=== PATIENT | male | born 1930 | race Caucasian/White ===

== ENCOUNTER 2017-05-21 08:42 | Emergency (ER) | payer MEDICARE, OTHER ==
[~2017-05-21] VITALS: Ht 167.6 cm; Wt 97.1 kg
[~2017-05-21 08:42] MED LIST: ALEVE220 MG PO; AMLODIPINE BESYL5 MG PO; ASPIRIN EC325 MG PO; CARVEDILOL3.125 MG PO; CRESTOR40 MG PO; FINASTERIDE5 MG PO; FUROSEMIDE20 MG PO; LEVOTHYROXINE75 MCG PO; LOSARTAN POTAS100 MG PO; METFORMIN HCL500 MG PO; NITROSTAT0.4 MG SL; SUPER TWIN EP1250 MG PO; TRAZODONE HCL50 MG PO; TYLENOL COLD M240 M1 PO
[2017-05-21] MEDS ORDERED: SERTRALINE HCL100 MG (09:29)
[2017-05-21] MEDS ORDERED: CRESTOR40 MG (09:34)
[2017-05-21] MEDS ORDERED: FERROUS SULFAT325 MG (09:35)
[2017-05-21] MEDS ORDERED: LATANOPROST2.5 ML (09:36)
--- NOTE | 2017-05-21 23:02 | EKG ---
[facility] [address] [facility] [place], [place] [address] Signed Sinus bradycardia with 2nd degree AV block (Mobitz I) Right bundle branch block Inferior infarct , age undetermined Abnormal ECG No previous ECGs available Confirmed by JUNIOR VINES MD ([id number]) on 05/21/2017 11:02:09 PM Electronically Signed By: JUNIOR VINES MD 05/21/17 230 PATIENT NAME: SANGEETA BOSS Electrocardiogram DATE OF : 34 PHYSICIAN: JUNIOR VINES MD REPORT #: [id number] REPORT IS CONFIDENTIAL AND NOT TO BE RELEASED WITHOUT AUTHORIZATION
== END 2017-05-21 14:34 | disposition short-term general hospital (02) ==
LOC: ED 08:42
DX: I44.1 Atrioventricular block, second degree (principal); Z87.891 Personal history of nicotine dependence; Z79.899 Other long term (current) drug therapy; Z79.84 Long term (current) use of oral hypoglycemic drugs; Z95.1 Presence of aortocoronary bypass graft; I45.10 Unspecified right bundle-branch block
CPT/HCPCS: 71045; 80053; 84484; 85025; 85610; 93005; 93010; 99285

== ENCOUNTER 2019-09-30 14:46 | Emergency (ER) | payer MEDICARE, OTHER ==
[~2019-09-30] VITALS: Ht 167.6 cm; Wt 97.1 kg
--- NOTE | ~2019-09-30 | EKG ---
[facility] [address] [facility] [place], [place] [address] Draft EK completed, results pending confirmation PATIENT NAME: CELSO BOSSRui HEBERT Electrocardiogram DATE OF : 34 PHYSICIAN: PRELIMINARY REPORT #: [id number] REPORT IS CONFIDENTIAL AND NOT TO BE RELEASED WITHOUT AUTHORIZATION
[~2019-09-30 14:46] MED LIST changes: +CRESTOR40 MG; +EXTRA STRENGTH500 MG PO; +FERROUS SULFAT325 MG; +LATANOPROST2.5 ML; +SERTRALINE HCL100 MG
[2019-10-02] MEDS ORDERED: CRESTOR40 MG NG (14:46)
[2019-10-02] MEDS ORDERED: CARVEDILOL25 MG PO (14:47)
[2019-10-02] MEDS ORDERED: XALATAN2.5 ML OPTH (14:50)
[2019-10-02] MEDS ORDERED: BRIMONIDINE TART5 ML OPTH (14:51)
== END 2019-09-30 18:43 | disposition home or self-care (01) ==
LOC: ED 14:46
DX: F32.9 Major depressive disorder, single episode, unspecified (principal); N18.9 Chronic kidney disease, unspecified; D64.9 Anemia, unspecified; F41.9 Anxiety disorder, unspecified; Z87.891 Personal history of nicotine dependence; Z79.899 Other long term (current) drug therapy; Z79.82 Long term (current) use of aspirin; Z79.84 Long term (current) use of oral hypoglycemic drugs
CPT/HCPCS: 71045; 80053; 83735; 83880; 84484; 85025; 93005; 93010; 96374; 99285-25; J2405

== ENCOUNTER 2019-10-02 11:39 | Inpatient (IN) | payer MEDICARE, OTHER ==
[~2019-10-02] VITALS: Ht 167.6 cm; Wt 100.2 kg
[~2019-10-02 11:39] MED LIST changes: -EXTRA STRENGTH500 MG PO; +TYLENOL325 M1 PO
--- OUTSIDE RECORDS SUMMARY | 2019-10-02 11:42 | XMS ---
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 Rosa Maria has no Care Guidelines for this patient. Yoav VISIT COUNT (12 MO.) 2 [facility] TOTAL 2 NOTE: Visits indicate total known visits. ED/UCC VISIT TRACKING (12 MO.) 10/02/2019 11:40 [facility] [place] TYPE: Emergency COMPLAINT: - BLACK STOOL 09/30/2019 14:[address] [facility] [place] TYPE: Emergency COMPLAINT: - NAUSEA, HEADACHE DIAGNOSES: - long-term (current) use of aspirin - Major depressive disorder, single episode, unspecified - Shortness of breath - Personal history of nicotine dependence - Anxiety disorder, unspecified - long-term (current) use of oral hypoglycemic drugs - Anemia, unspecified - Other buttermaker continuous churn (current) drug therapy - Chronic kidney disease, unspecified INPATIENT VISIT TRACKING (12 MO.) No inpatient visits to display in this time frame [email or web address]
[2019-10-02] MEDS ORDERED: LEXAPRO20 MG PO (13:25)
[2019-10-02] MEDS ORDERED: CRESTOR40 MG PO (14:46)
[2019-10-02] MEDS ORDERED: COREG12.5 MG PO (14:47)
[2019-10-02] MEDS ORDERED: LEXAPRO10 MG PO (14:48)
[2019-10-02] MEDS ORDERED: LEVO-T88 MCG PO (14:50)
[2019-10-02] MEDS ORDERED: XALATAN2.5 ML OU (14:50)
[2019-10-02] MEDS ORDERED: BRIMONIDINE TART5 ML OU (14:51)
--- NOTE | 2019-10-02 15:30 | NUR ---
PATIENT ARRIVED TO THE CCU ROOM 127 VIA STRETCHER AND TRANSFERED TO THE BED BY STANDING. PATIENT TOELRATED WELL. PATIENT IS A LITTLE WOBBLY WITH MOBILIZATION. PATIENT DENIES ANY NEEDS AT THIS TIME. WILL CONTINUE TO CLOSELY MONITOR.
--- NOTE | 2019-10-02 16:00 | NUR ---
CALLED MD SMITH TO UPDATE THAT PATIENTS TEMP ON ARIVAL IS 101.5. SEE NEW ORDERS. PATIENT STATES "I FEEL COLD". WILL GIVE TYLENOL ONCE BLOOD CULTURES ARE DRAWN.
--- NOTE | 2019-10-02 16:30 | NUR ---
PRN TYLENOL GIVEN FOR TEMP OF 101.5. WILL CLOSELY MONITOR FOR EFFECTIVENESS. PATIENT DENIES ANY OTHER NEEDS AT THIS TIME. UPDATED THAT HE WILL NEED TO GO FOR A CT SCAN. WILL CONTINEU TO RAJINDER MANNING.
--- NOTE | 2019-10-02 17:00 | NUR ---
[facility] L[facility]. PATIENT TOELRATED WELL. ASSISTED BACK TO BED. EDUCATED PATIENT TO CALL STAFF IF HE NEEDS TO GET UP. NO OTHER NEEDS AT THIS TIME. WILL CONTINUE TO CLOSELY MONTIOR.
--- NOTE | 2019-10-02 18:05 | NUR ---
THIS RN WENT WITH PATIENT TO CT. PATIENT TOELRATED WELL. PATIENT ABLE TO TRANSFER HIMSELF FROM BED TO CT TABLE. PATIENT BACK IN ROOM AT THIS TIME. DINNER ORDERED. PATIENT REQUESTED STAFF CALL HIS AND GIVE HER AN UPDATE. CALLED THE NUMBER PROVIDED SEVERAL TIMES, BUT HAS A BUSY SIGNAL WHEN CALLING. WILL TRY AGAING LATER. PATIENT IS DOING WELL AT THIS TIME. WILL CONTINUE TO CLOSELY MONTIOR.
--- NOTE | 2019-10-02 19:58 | NUR ---
IN ROOM TO ASSESS PT, SATURATIONS AT 9O PERCENT ON 2 L WHILE PT SLEEP. O2 INCREASED TO 3 L AT THIS TIME. PT DENIES PAIN OR SHORTNESS OF BREATH. PT HAS FINE CRACKLES IN THE BASES OF BOTH LUNGS OTHERWISE LUNGS SOUND CLEAR. PT DENIES PAIN. IV FLUIDS INFUSING. PT ALERT AND ORIENTED. PLAN OF CARE FOR EVENING DISCUSSED. CALL LIGHT WITHIN REACH. NO FURTHER NEEDS AT THIS TIME
--- NOTE | 2019-10-02 21:00 | NUR ---
LABS DRAWN AND MEDICATION ADMINISTRATION COMPLETE. PT ASSISTED WITH REPOSITIONING. PT REMAINS ON 3 L NC. CALL LIGHT WITHIN REACH. NO FURTHER NEEDS AT THIS TIME.
--- NOTE | 2019-10-02 21:01 | NUR ---
labs collected via XIMENA Lopez. sent via tube system.
--- NOTE | 2019-10-02 21:20 | NUR ---
PT SON UPDATED ON PLAN OF CARE AND PATIENT STATUS AT THIS TIME
--- NOTE | 2019-10-02 23:50 | NUR ---
IN ROOM FOR ASSESSMENT. PT DENIES ANY COMPLAINTS OF PAIN, SHORTNESS OF BREATH OR DISCOMFORT. PT REMAINS ON 3 L NC WITH 02 SATURATIONS IN THE MID 90'S. RR=20. LUNGS DIMINISHED WITH FINE CRACKLES IN BASES, WORSE IN LEFT BASE. ASSISTED PT WITH REPOSITIONING. CALL LIGHT WITHIN REACH. NO FURTHER NEEDS AT THIS TIME.
--- NOTE | 2019-10-03 00:55 | NUR ---
PT DESATURATING INTO THE MID 80S WHILE SLEEPING ON 3 L NC. RT CALLED TO PLACE PT ON CPAP. RT IN ROOM AT THIS TIME.
--- NOTE | 2019-10-03 01:12 | NUR ---
IN ROOM WITH RT TO ASSIST WITH PLACING CPAP. PT SHAKING, STATES HE IS COLD. TEMPERATURE WAS 99.6. GIVEN PRN MEDICATION FOR FEVER (SEE EMAR). PT REPOSITIONED IN BED. VOIDED INTO URINAL. PT PLACED ON CPAP, O2 SATS AT 100 PERCENT AT THIS TIME WITH CPAP IN PLACE.
--- NOTE | 2019-10-03 02:26 | NUR ---
PT OXYGEN SATURATIONS DROPPED INTO THE MID 80'S WHILE ON 3 L ON CPAP. IN ROOM TO ASSESS PT. ADJUSTED MASK, INCREASED O2 TO 4 L CPAP. PT ALERT AND ORIENTED, ANSWERING QUESTIONS APPROPRIATELY, DENIES SHORTNESS OF BREATH OR RESPIRATORY DISCOMFORT. SATURATIONS NOW AT 96 PERCENT. WILL CONTINUE TO MONITOR.
--- NOTE | 2019-10-03 04:00 | NUR ---
CPAP ALARMING, RT IN ROOM AT THIS TIME TO ADJUST MAX. O2 SATS REMAIN 90-93 PERCENT ON 3 L CPAP. NO FURTHER NEEDS AT THIS TIME.
--- NOTE | 2019-10-03 05:30 | NUR ---
IN ROOM TO DRAW LABS. PT REMAINS ON 3L CPAP.
--- NOTE | 2019-10-03 06:00 | NUR ---
PT UP TO BSC TO HAVE BM. PT HAD MEDIUM LIQUID STOOL. SAMPLE COLLECTED. PT REQUIRED ONE PERSON ASSIST WITH AMUBLATION. PT STATES, "I FEEL LIKE I MAY BE SICKER THAN I THOUGHT" ROSAS CARE PERFORMED. PT BACK IN BED ON 3 L NC. NO FURTHER NEEDS AT THIS TIME
--- NOTE | 2019-10-03 07:30 | NUR ---
PATIENT SHIFT REPORT RECIEVED FROM SEWING MACHINE MECHANIC RN. PATIENT RESTING IN BED AT THIS TIME. CALL LIGHT IN REACH. PATIENT CALLS APPROPRIATELY. PER REPORT PATIENT CURRENTLY ON 2L NC. WILL CONTINUE TO CLOSELY MONITOR.
--- NOTE | 2019-10-03 08:30 | NUR ---
PATIENT COMPLAINGING OF 5/10 LEFT SIDED CHEST PAIN. STATES "FEELS LIKE PRESSURE ON MY CHEST". PATIENT DENIES COUGHING. MD SMITH NOTIFIED. NEW ORDERS FOR EKG AND TROPONIN. PATIENT DENIES ANY OTHER NEEDS AT THIS TIME. WILL CONTINUE TO CLOSELY MONITOR.
--- NOTE | 2019-10-03 09:38 | NUR ---
PATIENT RESTING IN BED. PATIENT TROPONIN BACK AT 0.022 WHICH IS IMPROVED FROM YESTERDAY. PATIENT WAS ABLE TO MOVE HIMSELF UP IN BED ON HIS OWN AND TOLERATED WELL. PATIENT ORDERED BREAKFAST. NO OTHER NEEDS AT THSI TIME. WILL CONTINUE TO CLOSELY MONITOR.
[2019-10-03] MEDS ORDERED: VENTOLIN HFA18 GM INH (09:57)
[2019-10-03] MEDS ORDERED: VITAMIN D3125 MC1 PO (09:58)
[2019-10-03] MEDS ORDERED: COZAAR100 MG PO (10:01)
[2019-10-03] MEDS ORDERED: ZOLOFT100 MG PO (10:30)
[2019-10-03] MEDS ORDERED: MOTION SICKNESS25 M4 PO (10:32)
[2019-10-03] MEDS ORDERED: NITROSTAT0.4 MG SL (10:33)
--- NOTE | 2019-10-03 11:30 | NUR ---
PATIENT IS UP IN THE CHAIR AT THIS TIME AND BREAKFAST FINISHED. PATIENT USED THE URINAL WITH MINIMAL ASSIST. PATIENT REMAINS ON 2L NC. MD SMITH DID A ROOM AIR TRIAL WITH SPO2 89%. PATIENTS VITALS REMAIN STABLE. PATIENT DENIES ANY OTHER NEEDS AT THIS TIME. WILL CONTINUE TO CLOSELY MONITOR.
--- NOTE | 2019-10-03 13:07 | NUR ---
CRITICAL LAB OF POSITIVE COVID GIVEN TO DR SMITH AND PTS NURSE.
--- NOTE | 2019-10-03 13:30 | NUR ---
PATIENT UP IN THE CHAIR AT THIS TIME AND DOING WELL. PATIENT RESTING WELL AND DENEIS ANY NEEDS AT THIS TIME. WILL CONTINUE TO CLOSELY MONITOR.
--- NOTE | 2019-10-03 13:43 | NUR ---
DUE TO COVID STATUS, INFECTIONS DISEASE NURSE CONTACTED. SHE REQUESTS STAFF WHO HAVE TAKEN CARE OF PT BE NOTIFIED WELL [facility] SINCE PT HAD BEEN THERE 3 DAYS BEFORE. ALSO SHE REQUESTS MANAGERS BE CALLED. [facility] ALSO CALLED THIS RN, TO REQUEST CHART NOTES ON PT.
--- NOTE | 2019-10-03 13:52 | NUR ---
Medications reconciled using chart notes from recent [facility] visit
--- NOTE | 2019-10-03 14:00 | NUR ---
PATIENT RESTING IN BED. PATIENTS COVID TEST CAME BACK POSITIVE. MD SMITH NOTIFIED PATIENT AND SPOKE WITH HIM REGUARDING ALL QUESTIONS. MD SMITH CONTACTED HIS FAMILY WELL. NO FURTHER QUESTIONS AT THIS TIME. WILL CONTINUE TO CLOSELY MONITOR.
--- NOTE | 2019-10-03 14:02 | NUR ---
NURSING ADA ACCOMMODATION CONSULTANT AT [facility] [place] NOTIFIED OF POSITIVE COVID RESULT.
--- NOTE | 2019-10-03 15:31 | EKG ---
[facility] [address] [facility] [place], [place] [address] Signed AV dual-paced rhythm Abnormal ECG When compared with ECG of 30-SEP-2019 14:58, (Unconfirmed) No significant change was found Confirmed by DHIRAJ SMITH DO ([id number]) on 10/03/2019 3:31:46 PM Electronically Signed By: DHIRAJ SMITH DO 10/03/19 1531 PATIENT NAME: SANGEETA BOSS ANUP Electrocardiogram DATE OF : 34 PHYSICIAN: DHIRAJ SMITH DO REPORT #: [id number] REPORT IS CONFIDENTIAL AND NOT TO BE RELEASED WITHOUT AUTHORIZATION
--- NOTE | 2019-10-03 15:32 | EKG ---
[facility] [address] [facility] [place], [place] [address] Signed AV dual-paced rhythm with prolonged AV conduction Abnormal ECG When compared with ECG of 02-OCT-2019 12:09, (Unconfirmed) No significant change was found Confirmed by DHIRAJ SMITH DO ([id number]) on 10/03/2019 3:32:01 PM Electronically Signed By: DHIRAJ SMITH DO 10/03/19 1532 PATIENT NAME: SANGEETA BOSS ANUP Electrocardiogram DATE OF : 34 PHYSICIAN: DHIRAJ SMITH DO REPORT #: [id number] REPORT IS CONFIDENTIAL AND NOT TO BE RELEASED WITHOUT AUTHORIZATION
--- NOTE | 2019-10-03 15:55 | NUR ---
PATIENT UP TO THE BEDSIDE TO VOID. PATIENT IS STABLE ON HIS FEET WITH STANDING AND REQUIRES STAND-BY ASSIST. PATIENT VISITED WITH MARY GAGE FROM [facility]. PATIENT STATED HE HAD A GOOD VISIT WITH HER AND IT HELPED. PATIENT IS FEELING PRETTY DOWN ABOUT HIS DIAGNOSIS OF COVID19. REVIEWED PATIENTS STATUS AND HOW HE IS DOING AT THIS TIME AND TRIED TO ENCOURAGE PATIENT IN HIS PROGRESS SO FAR. PATIENT IS STABLE AND DOING WELL AT THIS TIME. WILL CONTINUE TO CLOSELY MONITOR.
--- NOTE | 2019-10-03 18:14 | NUR ---
THIS RN IN TO SEE PATIENT. ASSISTED PATIENT TO THE EDGE OF THE BED. PATIENT SHAKY AND STATES HE IS COLD. TEMPERATURE CHECKED AND NORMAL AT 98.6. GAVE PRN TYLENOL FOR GENERALIZED PAIN. PATIENT ALSO NAUSEATED AND VOMITED ABOUT 50MLS OF CLEAR FLUID. PATIENT HAS UN UPPER AIRWAY EXERTION WHEEZE NOTED. PATIENT SPO2 DECREASED WITH CHILLING. INCREASED OXYGEN UP TO 4L NC. ASSISTED PATIENT ONTO HIS SIDE. PATIENT UNABLE TO TOLERATE PRONING AT THIS TIME. PER MD SMITH ENCOURAGE PRONING IF PATIENT CAN TOELRATE. ONCE PATIENT IS NO LONGER CHILLING AND FEELING A LITTLE BETTER, WILL TRY PRONING. RT IN TO ASSESS PATIENT. NO OTHER NEEDS AT THIS TIME. WILL CONTINUE TO CLOSELY MONITOR.
--- NOTE | 2019-10-03 19:30 | NUR ---
PT REPORT RECEIVED, CARE ASSUMED AT THIS TIME. RESPONDED TO PT CALL LIGHT TO ASSIST WITH URINAL. PT STEADY ON FEET WITH ONE PERSON ASSIST. ASSESSMENT COMPLETED. PLAN OF CARE ESTABLISHED FOR SHIFT. PT COMPLIANS OF FEELING HOT, TEMP OF 99.1. DISCUSSED RESPIRATORY CARE PLAN FOR NIGHT. PT TO SLEEP ON SIDE MUCH POSSIBLE. CALL LIGHT WITHIN REACH. NO FURTHER NEEDS AT THIS TIME.
--- NOTE | 2019-10-03 20:30 | NUR ---
IN ROOM FOR MEDICATION ADMINISTRATION. ASSISTED PT WITH TURNING ON TO RIGHT SIDE. OXYGEN INCREASED TO 5 L NC, FOR SATURATIONS DOWN INTO THE MID 80'S ON FOUR LITERS NASAL CANNULA. AFTER REPOSITIONING AND INCREASED O2 DELIVERY, PT OXYGEN SATURATIONS INCREASED TO 90 PERCENT.
--- NOTE | 2019-10-03 21:41 | NUR ---
I was called by the Television Inspector to talk with PT who was feeling anxiety over his diagnosis and concern over his at 1443. I called the CCU nurse in charge of PT's care, Beverly, and she shared more with me about PT's situation and that he was baptism and believed in the Lord. She felt it better for me to talk with him over the phone then to stand outside his room.I was transferred to his room and we had good report as we talked about his diagnosis and his concern for his , mostly leaving her if he passed. The nurse asked me to let him know that they contacted his and son about his diagnosis. He welcomed me sharing scripture with him and I read Sadi 4:4-7. From those verses we talked about his concerns and he welcomed me to pray for those concerns. He is also not wanting to suffer too much. I reminded him that God was with him and that He was good and not surprised by the PT's circumstances. I let him know that he could have the nurses contact me if he would like to talk again.
--- NOTE | 2019-10-03 21:45 | NUR ---
RT CALLED TO PUT PT ON CPAP. PT SATURATIONS DIPPED DOWN TO 80 PERENT WHILE SLEEPING. PT PLACED ON CPAP WITH 5 L O2 BLEED IN. SATURATIONS NOW AT 97 PERECENT. RESPIRATIONS EVEN AND LABORED. WILL CONTINUE TO MONITOR RESPIRATORY STATUS AND OXYGENATION.
--- NOTE | 2019-10-03 22:43 | NUR ---
PT RESTING WITH EYES CLOSED, BREATHING EVEN AND UNLABORED. SPO2 95 PERCENT ON 5 L CPAP. CALL LIGHT AND PERSONS BELONGINGS WITHIN REACH. NO FURTHER NEEDS AT THIS TIME.
--- NOTE | 2019-10-03 23:43 | NUR ---
IN ROOM TO ASSESS PATIENT. PT URINATED, REPOSITIONED IN BED ONTO LEFT SIDE. NO FEVERS, REMAINS ON CPAP. FINE CRACKLES NOTED IN BASES. CALL LIGHT WITHIN REACH. DENIES FURTHER NEEDS AT THIS TIME.
--- NOTE | 2019-10-04 00:07 | NUR ---
RT IN ROOM AT THIS TIME TO ADJUST CPAP ON PT.
--- NOTE | 2019-10-04 01:06 | NUR ---
PT CPAP WAS ALARMING. ASSISTED PT IN REPOSITIONING ONTO RIGHT SIDE AND REPOSITIONED MASK. SPO2 AT 94 PERCENT ON 5 L CPAP. NO FURTHER NEEDS AT THIS TIME
--- NOTE | 2019-10-04 02:30 | NUR ---
PT RESTING ON BIPAP, SPO2 = 96. RR=21. BREATHING EVEN AND NONLABORED. WILL CONTINUE TO MONITOR.
--- NOTE | 2019-10-04 03:46 | NUR ---
IN ROOM FOR ASSESSMENT. ASSISTED PT TO STANDING POSITION TO VOID. PT PLACED ON NC WHILE ASSESSMENT COMPLETED. FOUND TO HAVE COARSE CRACKLES IN BILATERAL LOWER LUNGS. ENCOURAGED TO COUGH AND DEEP BREATH. REPOSITIONED PT IN BED ON LEFT SIDE, PLACED BACK ON CPAP. CALL LIGHT WITHIN REACH. NO FURTHER NEEDS AT THIS TIME
--- NOTE | 2019-10-04 04:10 | NUR ---
DR SMITH UPDATED ABOUT PT'S LOW GRADE TEMP, COARSE CRACKLES IN THE BASIS, AND INCREASING BLOOD PRESSURES. ORDERS RECIEVED. PT IV FLUIDS DC'D AT THIS TIME.
--- NOTE | 2019-10-04 05:21 | NUR ---
IN ROOM WITH THE PT, REQUESTING BSC FOR BM. AFTER SITTING UP TO BED, PT HAD EPISODE OF SHORTNESS OF BREATH, SATURATIONS DROPPED DOWN INTO THE LOW 80'S. PLACED ON OXIMASK 10L. SATURATIONS BACK INTO THE 90'S, BUT RR IN THE 30S. PT LUNGS SOUND COARSE WITH CRACKLES. PT HAS RIGORS. TEMP OF 99.4 AT THIS TIME. PT BACK IN BED. REMAINS ON 8 L OM.
--- NOTE | 2019-10-04 06:56 | NUR ---
pt had large liquid incontient stool in bed. KATHRYN Ramos performed completed bed change and skin care.
--- NOTE | 2019-10-04 07:00 | NUR ---
Report received, orders acknowledged.
--- NOTE | 2019-10-04 07:16 | NUR ---
pt used call light to ask for assistance to BSC, he had an accident and a complete bed change was done. new gown provided for pt. pt was cleaned and is comfortably resting in bed. nothing further needed at this time.
--- NOTE | 2019-10-04 08:15 | NUR ---
Patient up to BSC with 1PA, voided 350 mls. HR in the 60's, RR increases to the 30's with ambulation, SpO2 of 94% on 6L oxymask. Returns to bed with 1PA. Vitals taken, assessment complete. BP of 173/64. AM medications given (see MAR). BG of 144, 1 unit of insulin given. Water refreshed, breakfast delivered. Crackles auscultated in lower bases of lungs, clear in uppers. 0900 - Patient reports nausea, prn antiemetic given (see MAR).
--- NOTE | 2019-10-04 09:33 | NUR ---
Dr. Alexander in room to assess patient and discuss POC
--- NOTE | 2019-10-04 11:00 | NUR ---
Patient laying in bed with eyes closed, rouses easily to voice. HR in the 60's, SpO2 of 96% on 6L oxymask, RR of 18. Denies pain or nausea. IV 200 mg remdesivir hung at 500mls/hr. Patient educated to alert nursing staff to s/s of infusion reaction. Patient educated on importance of using incentive spirometer. Call light within reach.
--- NOTE | 2019-10-04 11:37 | NUR ---
Spoke with patient's son on telephone, updated on patient condition
--- NOTE | 2019-10-04 11:54 | NUR ---
Patient laying in bed on right side, talking on phone with family. BG of 130, no insulin given. IV furosemide given. Vitals taken, assessment complete.
--- NOTE | 2019-10-04 12:15 | NUR ---
Patient sitting up at edge of bed with feet on floor. Lunch delivered. Patient ate 100% of meal, denies nausea. Patient up to commode with 1PA, voided 350 mls with diffuse, loose small amount of diarrhea. New linens on bed, new gown provided. Cold cloth applied to patient's back. 1245 - Returns to bed in prone position, SpO2 immediately rises to 97-99% on 6LNC. Patient agreeable to laying in prone position for 30 minutes to 2 hours. Will check on patient at 1315 to reassess.
--- NOTE | 2019-10-04 12:53 | NUR ---
PT UNDER PRECAUTIONS, GAVE XIMENA PITTS TO GIVE PT THAT I AM AVAILABLE FOR PHONE CALL CONFERENCE IF NEEDED.
--- NOTE | 2019-10-04 13:59 | NUR ---
Patient laying in prone position, in reverse trendelenburg. Patient sleeping, RR of 22, SpO2 of 99% on 6LNC, HR in the 60's. Call light within reach.
--- NOTE | 2019-10-04 14:48 | NUR ---
Patient laying in prone position, in reverse trendelenburg. Patient sleeping, RR of 20, SpO2 of 96-100%, HR in the 60's. Call light within reach.
--- NOTE | 2019-10-04 14:57 | NUR ---
Patient now laying on left side. RR of 18, SpO2 of 92-95% on 5LNC, HR in the 60-70's. Call light within reach.
--- NOTE | 2019-10-04 15:30 | NUR ---
Patient standing at bedside with 1PA to void in urinal, 450 mls. Reports "I feel less wobbly than I did earlier." Patient repositioned in bed back to prone, in reverse trendelenburg. SpO2 of 97% on 5LNC, HR in the 60's, RR of 16. Temp taken, patient afebrile. 1000mg acetaminophen given. Water refreshed, patient covered with blanket in prone. Denies further needs, call light within reach.
--- NOTE | 2019-10-04 16:30 | NUR ---
Spoke with pt by phone as he is Covid +. Pt states he lives in [place] in a 1 story home without steps. LIves with his . 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 States he has been going through a depression and has done so in the past. Would like to go to counseling andnames given, pt would like to use [facility]. I will schedule an appt. Pt plans on going home to his [facility] on [address]. He feels his has already had covid and the [facility] is assessing and following her health.
--- NOTE | 2019-10-04 18:00 | NUR ---
IN PATIENTS ROOM TO HELP HIM UP TO BSC. PT STATES HE'S FEELING OKAY OVERALL, BUT NOT GREAT.
--- NOTE | 2019-10-04 18:45 | NUR ---
Patient sitting up in chair. HR in the 60's, SpO2 of 95%, with a RR of 22. New CPOX placed on patient finger. Patient reports feeling "cold," warm blankets provided. Denies further needs, call light within reach.
--- NOTE | 2019-10-04 19:10 | NUR ---
Patient up to BSC, unable to void or produce BM. Patient shaking with rigors, warm blankets provided. Returns to chair with 1PA, continues to shake. Patient reports "I'm a little anxious, and a little cold." More warm blankets applied. Temp of 99.0. Call light within reach.
--- NOTE | 2019-10-04 19:30 | NUR ---
REPORT RECIEVED FROM CCU RN, CARE OF PATIENT ASSUMED AT THIS TIME. PT UP IN CHAIR ON 5 L NC, CALL LIGHT WITHIN REACH. NO NEEDS AT THIS TIME.
--- NOTE | 2019-10-04 20:15 | NUR ---
IN ROOM FOR ASSESSMENT. PT HAS RIGORS, TEMPERATURE AT 99.0F. TYLENOL AND OTHER PM MEDICATIONS GIVEN AT THIS TIME. PT HAS COARSE CRACKLES IN BILATERAL LUNGS, UPPER AIRWAYS CLEAR. DISCUSSED PRONING AND PLAN OF CARE FOR NIGHT. PT REQUESTS TO SLEEP ON SIDE FOR UNTIL LOW GRADE FEVER BREAKS. ASSISTED PT TO BSC, AND THEN INTO BED. LAYING ON LEFT SIDE. SPO2 AT 95 PERCENT ON 6 L NC, RR =24. SIDE RAILS UP, CALL LIGHT WITHIN REACH. NO FURTHER NEEDS AT THIS TIME.
--- NOTE | 2019-10-04 21:17 | NUR ---
IN ROOM TO ASSIST PT TO BSC. PT LESS SHAKY AND COLD. STATES HE IS FEELING BETTER. TEMPERATURE 99.8 AT THIS TIME. PT BACK TO BED. IN PRONE POSITION AT THIS TIME. SATURATIONS 95 PERCENT ON 6 L NC.
--- NOTE | 2019-10-04 21:48 | NUR ---
pt back up to bsc to have bowel movement. mainting saturations in the low 90s with ambulation on 6 l nc. bsck in bed. laying on left side. call light within reach.
--- NOTE | 2019-10-04 23:12 | NUR ---
PT RESTING WITH EYES CLOSED, BREATHING EVEN AND UNLABORED. RR=24, SPO2 91 PERCENT ON 6 L NC. CALL LIGHT WITHIN REACH. NO FURTHER NEEDS AT THIS TIME.
--- NOTE | 2019-10-05 00:48 | NUR ---
IN ROOM FOR ASSESSMENT. PT UP TO BEDSIDE TO VOID. LUNGS CONTINUE TO HAVE COARSE CRACKLES, WORSE IN THE LEFT LOWER LOBE. PT TEMPERATURE IS 100.0 BUT PATIENT IS NOT SHAKING OR CHILLING. ASSISTED PT WITH TURNING TO RIGHT SIDE LYING POSITION. OXYGEN SATURATIONS IN THE MID 90S ON 6 L NC. NO REPORTED NEEDS AT THIS TIME.
--- NOTE | 2019-10-05 03:58 | NUR ---
I heard an alarm so i checked on pt. He was out of bed, I asked him to get back into bed and i will come in and assist him. turns out pt used the trash can as a BSC and had a med sized BM. pt was cleaned and a complete bed changed occured. pt requested water and warm blankets, nothing further was needed from pt. this contract post office clerk told pt how important it is for him to use the call light for assistance. pt agreed this was the best practice and will use the call light. bed alarm is set incase he "doesnt want to be a bother".
--- NOTE | 2019-10-05 05:28 | NUR ---
in room for assessment. pt has chills. temp of 101.1 F. lungs sound diminished. crackles remain present in both bases, though they have improved since the last assessment. saturations at 92 percent on 6 l nc. pt up to bsc. had liquid bowel movement. work of breathing increased with fever. tylenol given early. back in bed at this time. will continue to closely monitor respiratory rate, oxygenation, and temperature.
--- NOTE | 2019-10-05 06:05 | NUR ---
pt used call light to ask for a cool rag because his temperture was fairly high. temperture was rechecked and had gone down some. 100.4. pt said he did not need anything further at this time.
--- NOTE | 2019-10-05 06:49 | NUR ---
pt used call light to ask to use restroom. stated he was not feeling well at all. he is feeling naueous, hes painful, hes "sort of confused". he knows where he currently is. XIMENA Lopez notified.
--- NOTE | 2019-10-05 06:55 | NUR ---
PT HEART RATE INCREASED UP BETWEEN THE 80-110 WITH A WIDEN QRS. BEATS ARE NOT PASSED. PT REPORTS FEELING MILDLY NAUSEATED AND GENERALIZED PAIN. DR SMITH CALLED AND ORDERS RECIEVED. KATHRYN CHRIS IN ROOM AT THIS TIME TO DO AN EKG.
--- NOTE | 2019-10-05 07:15 | NUR ---
Report received, orders acknowledged.
--- NOTE | 2019-10-05 08:00 | NUR ---
Patient sleeping in bed, rouses easily to voice. HR ranging from 60-100's. AM medications given (see MAR). Vital signs taken, assessment complete. Coarse crackles auscultated in lower lobes. Patient up to chair with 1PA, unsteady on feet. Warm cloth applied to face, hair combed. New linens changed on bed. IV magnesium started at 50 mls/hr. IV sites patent and flush easily. 0900 - IV remdesivir started at 250 mls/hr. Breakfast delivered, 75% of meal eaten. Patient denies pain or nausea with eating. Water refreshed, no further needs at this time. Call light within reach.
--- NOTE | 2019-10-05 10:15 | NUR ---
Patient sitting up in chair, sleeping with even and unlabored respirations. SpO2 ranging from 85-90% while sleeping on 6LNC. Patient awakens easily to voice, SpO2 increases to 92%. Patient ambulated to bed with 1PA, unsteady on feet. Prone positioning initiated, SpO2 ranges from 97-99% on 6LNC. Patient denies further needs at this time, call light within reach.
--- NOTE | 2019-10-05 12:00 | NUR ---
Patient sitting up at bedside with feet on floor. IV site window replaced. Vitals taken, assessment complete. Patient BP of 73/48 while sitting up at bedside. BP reassessed, continues to be in the 70's systolic. Patient lays down in bed, BP checked again - 122/62. Orders acknowledged to administer LR at 250 mls/hr. One-time dose of metoprolol held. Temp of 98.3. Patient reported dizziness while sitting up at bedside, dizziness has subsided when laying down. Lunch delivered, BG of 141. Patient reports lack of appetite but will "try to eat." A new gown and warm blankets provided for patient. Denies further needs at this time, call light within reach.
--- NOTE | 2019-10-05 12:39 | NUR ---
Dr. Alexander in room to assess patient and discuss POC
--- NOTE | 2019-10-05 13:00 | NUR ---
Patient up to BSC, voided 350 mls. Returned to bed with 1PA. Patient laying on right side, SpO2 of 98% on 6LNC and RR of 20. Warm blankets provided, denies needs at this time. Call light within reach.
--- NOTE | 2019-10-05 13:11 | NUR ---
WENT TO CHECK IN ON PT. HE IS UNDER PRECAUTIONS AND HAD HIS RN TAYLOR LET HIM KNOW I AM AVAILABLE TO TALK BY PHONE IF HE DESIRES. +
--- NOTE | 2019-10-05 13:46 | NUR ---
Patient sleeping in bed, respirations even and unlabored. SpO2 of 91-93% on 6LNC, RR aning from 22-25. HR in the 60's. Call light within reach.
--- NOTE | 2019-10-05 16:00 | NUR ---
Patient up to BSC with 1PA, unable to produce BM. Returns to bed in prone position in reverse trendelenburg, SpO2 of 100% on 6LNC. Denies further needs at this time, call light within reach.
--- NOTE | 2019-10-05 16:51 | NUR ---
Waved at pt through his window. Let him know I will call in the next hour. Attempted to call pt and he does not answer. Returned to CCU. Pt is sleeping. Not awakened. I was unable to schedule an appt for counseling today, but will attempt again tomorrow.
--- NOTE | 2019-10-05 17:16 | NUR ---
IN ROOM TO HELP PATIENT OUT OF PRONE POSITION. PT UP TO CHAIR NOW. PT DENIES BEING HUNGRY. PT VOIDS 225 ML IN COMMODE. PT DENIES WANTIGN TO TALK TO HIS GRANDSON ERICKA AT THIS TIME.
--- NOTE | 2019-10-05 17:41 | EKG ---
[facility] [address] [place] [address] Signed Atrial-paced rhythm Left bundle branch block Abnormal ECG When compared with ECG of 03-OCT-2019 08:33, Electronic atrial pacemaker has replaced Electronic ventricular pacemaker Confirmed by DHIRAJ SMITH DO ([id number]) on 10/05/2019 5:41:05 PM Electronically Signed By: DHIRAJ SMITH DO 10/05/19 1741 PATIENT NAME: SANGEETA BOSS Electrocardiogram DATE OF : 34 PHYSICIAN: DHIRAJ SMITH DO REPORT #: [id number] REPORT IS CONFIDENTIAL AND NOT TO BE RELEASED WITHOUT AUTHORIZATION
--- NOTE | 2019-10-05 19:06 | NUR ---
Patient up to the BSC, small amount of urine mixed with diarrhea noted. Returned to chair with 1PA, unsteady on feet. IV ceftriaxone finished infusing. Warm blankets provided, denies further needs at this time. Call light within reach.
--- NOTE | 2019-10-05 20:09 | NUR ---
PATIENT SITTING UP IN THE RECLINER. PATIENT DECLINED HIS DINNER. FRESH ICE WATER PROVIDED. PATIENT REPORTS FEELING CHILLED, ORAL TEMP 99.7 F. PATIENT ASSISTED TO THE BED FROM RECLINER. MILDLY UNSTEADY ON HIS FEET. PATIENT DOES NOT REPORT FEELING SOB, HOWEVER BREATHING IS SLIGHTLY LABORED AND O2 SAT 85% ON 6L AFTER TRANSFERING. ENCOURAGED PATIENT TO LAY IN PRONE POSITION, WHICH HE DECLINES AT THIS TIME.
--- NOTE | 2019-10-05 20:54 | NUR ---
PATIENT PROVIDED WITH PRN TYLENOL FOR FEVER. PATIENT REPORTS FEELING CHILLED AND HAVING ACHES. PATIENT'S BREATHING IS LABORED AND UNABLE TO MAINTAIN O2 SATS GREATER THAN 90% ON 6L NC. PATIENT SWITCHED TO CPAP WITH 8L BLEED IN. DISCUSSED CHANGES WITH AND RT. PATIENT REPORTS FEELING WARM, COOL WASH CLOTH PROVIDED AND TEMP IN ROOM ADJUSTED. PATIENTS BLOOD GLUCOSE WNL, NO SSI AT THIS TIME. COREG PER ORDERS. PATIENT'S HR 63. AFTER SEVERAL MINS ON CPAP PATIENT'S O2 SAT INCREASED TO 93%.
--- NOTE | 2019-10-05 21:52 | NUR ---
PATIENT REMOVED CPAP. 84% ON ROOM AIR. PATIENT REPORTS FEELING IF HE IS "BURNING UP". PATIENT SWITCHED TO 6L NC. REPOSITIONED ONTO HIS RIGHT SIDE. COOL WASH CLOTH PROVIDED. ORAL TEMP CONTINUES TO BE SLIGHTLY ELEVATED AT 99.6 F. PATIENT DENIES NEED TO VOID. ENCOURAGED PATIENT TO REST.
--- NOTE | 2019-10-05 22:02 | NUR ---
PATIENT SITTING UP TO THE EDGE OF THE BED. BED ALARM ALERTED STAFF. PATIENT REPORTS HAVING TO COUGH AND SPITTING UP A LARGE DARK BROWN BIT OF SPUTUM. PATIENT ASSISTED TO CLEAN UP AND OFFERED A SIP OF WATER. PATIENT'S HR ELEVATED AT 112 WITH WIDE QRS. PATIENT DENIES FEELING SOB OR CHEST PAIN. BP 110/84 (91). PATIENT DENIES NEED TO VOID. AGREED TO LEAVE PATIENT SITTING AT EDGE OF BED. PATIENT HAS CALL LIGHT IN HAND. VERBALIZES HIS PLAN TO CALL FOR ASSISTANCE IF HE NEEDS IT AND WILL NOT STAND UP WITHOUT STAFF IN THE ROOM.
--- NOTE | 2019-10-06 00:15 | NUR ---
PATIENT SLEEPING SOUNDLY. WOKE EASILY TO VOICE. ORAL TEMP IS 98.3 F. PATIENT REPORTS FEELING BETTER. BLANKET PROVIDED. PATIENT SLEEPING ON RIGHT SIDE. TOLERATING 6L NC. VS STABLE. HR FLUCTUATING 65-115. PATIENT DENIES NEED TO VOID.
--- NOTE | 2019-10-06 02:30 | NUR ---
PATIENT UP TO THE BSC WITHOUT CALLING FOR ASSISTANCE. WHEN STAFF ENTERED THE ROOM THE PATIENT STATED "I KNOW I BROKE THE RULE AND GOT UP, BUT I HAD TO GO". PATIENT HAD A LARGE AMOUNT OF URINE ON THE FLOOR AND A MEDIUM SEMI FORMED STOOL IN THE BSC. STOOL WAS DARK BROWN IN COLOR. ASSISTED PATIENT WITH NEW GOWN AND CLEANING UP. PATIENT RETURNED TO BED. O2 SAT 87% ON 6L. QUICKLY RECOVERED TO 92% AFTER LAYING IN BED ON HIS LEFT SIDE. PATIENT DENIES ANY NEEDS AT THIS TIME. REMINDED PATIENT TO USE CALL LIGHT EVEN IF HE IS IN A HURRY TO USE THE BATHROOM. BED ALARM ACTIVE. PATIENT AGREES TO CALL FOR ANY NEEDS. 0250 BED ALARM SOUNDS. PATIENT SAT UP IN BED TO SPIT OUT A LARGE CHUNK OF DARK BROWN SPUTUM. BED ALARM RESET. PATIENT DENIED ANY NEEDS. CALL LIGHT IN HAND.
--- NOTE | 2019-10-06 05:00 | NUR ---
PATIENT SLEEPING SOUNDLY. WAKES EASILY TO VOICE. REPORTS SLEEPING WELL, DENIES ANY CONCERNS. NO NEED TO VOID AT THIS TIME. CALL LIGHT IN REACH.
--- NOTE | 2019-10-06 05:45 | NUR ---
MORNING LABS DRAWN. PATIENT USED URNAL TO VOID. THEN NEEDED TO HAVE A BM, PATIENT UP TO BSC WITH MINIMAL DIFFICULTY. SMALL SEMI FORMED DARK BROWN STOOL NOTED. PATIENT UP TO THE RECLINER. VS STABLE. PATIENT TOLERATING 6L NC. CONTINUES TO HAVE SOME BLOODY SPUTUM. PATIENT IS IN GOOD SPIRITS THIS MORNING. DENIES FURTHER NEEDS AT THIS TIME.
--- NOTE | 2019-10-06 07:05 | NUR ---
PATIENT'S O2 SAT 86-88% ON 6L NC WHILE UP IN THE CHAIR. RR 25. PATIENT IS ALERT AND DENIES FEELING SOB. PATIENT PLACED ON OXY MASK WITH 8L IN ADDITION TO THE 6L NC. PATIENT FEELS CHILLED, ORAL TEMP 98.8 F.
--- NOTE | 2019-10-06 07:15 | NUR ---
Report received, orders acknowledged. Patient sleeping in chair, respirations even and unlabored. SpO2 of 95% on 8L oxymask, RR of 20. HR in the 60's. Call light within reach.
--- NOTE | 2019-10-06 08:30 | NUR ---
Patient sleeping in chair, respirations even and unlabored. SpO2 of 97% on 8L oxymask and 8LNC, RR of 20. Patient rouses easily. AM medications given. BG of 109, no insulin given. Vital signs taken, assessment complete. RT in room to assess lung sounds. Crackles noted in bilateral bases, worse on the left side. Clear in the uppers. Patient intermittently coughing up hemoptysis, sputum sample to be collected. Water refreshed, denies further needs. Call light within reach.
--- NOTE | 2019-10-06 09:40 | NUR ---
Patient up to BSC, 400 mls of urine mixed with dark brown/black sediment textured stool. Patient steady on feet. Returns to chair with SBA. Patient continuing to eat breakfast slowly. Reports nausea is improved from earlier. Denies further needs, call light within reach.
--- NOTE | 2019-10-06 11:10 | NUR ---
Updated patient's daughter and son on the phone on patient condition
--- NOTE | 2019-10-06 11:23 | NUR ---
Patient sleeping in chair, respirations even and unlabored. SpO2 of 95% on 8L oxymask with 8LNC in place, RR of 20. Denies needs at this time, call light within reach.
--- NOTE | 2019-10-06 13:25 | NUR ---
ASSISTED PT UP TO BEDSIDE COMMODE FOR BM. PT HAS SIGNIFICANT INCREASED WORK OF BREATHING WITH MOVEMENT TO COMMODE. O2 SAT WHEN BACK TO CHAIR, 86%, RECOVERED QUICKLY, THOUGH PT APPEARS TO BE PHYSICALLY EXHAUSTED AFTER MOVING. PT REPORTS FEELING CHILLED AND SHAKY. TEMP TAKEN AT 98.4.
--- NOTE | 2019-10-06 13:58 | NUR ---
Patient sitting up in chair, SpO2 of 94-98% with 6LNC and 8L oxymask in place. Temp of 99.2, prn acetaminophen given. Patient reports "feeling exhausted and chilly." Warm blankets provided. Assessment of the lung shows crackles throughout right lobe, coarse crackles auscultated in left lower lobe, and clear in the left upper lobe.
--- NOTE | 2019-10-06 14:30 | NUR ---
Dr. Alexander in room to assess patient and discuss POC
--- NOTE | 2019-10-06 14:45 | NUR ---
Patient SpO2 in the low to mid 90's on 14L oxygen (6LNC and 8L oxymask). RT in room to set up vapotherm. Settings at 30LPM, 50% FiO2, at 34 degrees. Patient also returned to bed with 1PA, laying in prone position in reverse trendelenburg, SpO2 of 97%, RR of 22. HR in the 60's. Warm blankets provided, denies further needs. Call light within reach.
--- NOTE | 2019-10-06 15:00 | NUR ---
Update from Rn as pt is not feeling well today. States he is requiring more 02 and not feeling well.
--- NOTE | 2019-10-06 15:45 | NUR ---
Patient HR ranging from 60-115. 12.5mg of metoprolol given and 2gm mag IV. Patient rotated from prone position to laying on left side, SpO2 drops to 89-91% on vapotherm (30LPM, 50% FiO2). FiO2 increased to 70%, sats climb to 95-97%. RR at 14, patient appears exhausted. Blinds drawn, lights turned off, plan to sleep until dinner. Patient agreeable. Call light within reach.
--- NOTE | 2019-10-06 19:15 | NUR ---
Patient up to C, voided 525 mls. Patient afebrile. Lung sounds auscultated, clear in right lobes, clear in upper left lobe, and crackles noted in left base. Patient returned to chair, SOB with exertion. SpO2 dips down to 85% after ambulating, returns to 96% after resting in chair. Vapotherm at 30LPM, 70% FiO2. Patient reports chills, blankets provided. Call light within reach.
--- NOTE | 2019-10-06 20:45 | NUR ---
SHIFT REPORT RECEIVED FROM XIMENA VAZQUEZ. ASSESSMENT COMPLETED AT THIS TIME. PT APPEARS SOMEWHAT LETHARGIC, REPORTS FEELING WORN OUT. ASSESSMENT LIMITED DUE TO PAPR PPE USE. PER XIMENA VAZQUEZ @ 1900, LUNG SOUNDS WERE CLEAR EXCEPT FOR CRACKLES IN THE LEFT BASE. VAPOTHERM REMAINS IN PLACE AT 30L @ 70%. HR PACED. DENIES CHEST PAIN. ABDOMEN TENDER, DENIES NAUSEA AT THIS TIME. PT UP TO BSC WITH SBA, VOIDED AND RETURNED TO CHAIR PER REQUEST. DYSPNIC WITH EXERTION, OCCASIONALLY COUGHS UP SMALL AMOUNT OF BLOODY SPUTUM. TEMP 100.5 PRN TYLENOL GIVEN. PT DENIES FURTHER NEEDS, CALL LIGHT WITHIN REACH.
--- NOTE | 2019-10-06 22:06 | NUR ---
PT CALLED TO REQUEST HELP GETTING INTO BED. CONTINUES TO REPORT "NOT FEELING WELL" BUT DENIES PAIN. DYSPNEA WITH ACTIVITY. SATS 92% WITH ACTIVITY. VAPOTHERM SETTINGS UNCHANGED. RECHECKED TEMP, 98.5 ORALLY AT THIS TIME. BELONINGS AND CALL LIGHT WITHIN REACH. NO FURTHER REQUESTS AT THIS TIME.
--- NOTE | 2019-10-07 00:15 | NUR ---
IN TO CHECK ON PT WHO HAD DESATURATED TO 72%, FOUND THAT NASAL PRONGS OF VAPOTHERM HAD COME OUT OF HIS NOSE. REPOSITIONED PRONGS AND SATS QUICKLY YG TO >90%, CURRENTLY 96%. VAPOTHERM SETTINGS UNCHANGED AT 30L @ 70%. ASSESSMENT COMPLETED, LIMITED DUE TO PAPR PPE. PT CURRENTLY DENIES SOB, CHEST PAIN, AND NAUSEA. REMAINS AFEBRILE. WARM BLANKET PROVIDED PER REQUEST. PT DENIES NEEDING TO USE THE BATHROOM AT THIS TIME. NO FURTHER REQUESTS OR COMPLAINTS. CALL LIGHT AND BELONGINGS WITHIN REACH.
--- NOTE | 2019-10-07 03:12 | NUR ---
PT APPEARS TO BE RESTING COMFORTABLY, NO APPARENT DISTRESS. RESPIRATIONS EVEN AND UNLABORED, RR:22, SPO2:94%, HR:60. VAPOTHERM REMAINS IN PLACE. WILL ALLOW FOR REST AND CONTINUE TO MONITOR.
--- NOTE | 2019-10-07 04:20 | NUR ---
PT CALLED TO USE BATHROOM, UP WITH SBA TO [facility], VOIDED 375ML AND RETURNED TO BED. ASSESSMENT COMPLETED, UNCHANGED. CONTINUES TO DENY CHEST PAIN, SOB, AND NAUSEA. REMAINS DYSPNIC WITH ACTIVITY. IV SITES INTACT AND PATENT. PT DENIES FURTHER REQUESTS AT THIS TIME.
--- NOTE | 2019-10-07 05:40 | NUR ---
MORNING LABS DRAWN. PT DENIES REQUESTS AT THIS TIME.
--- NOTE | 2019-10-07 07:30 | NUR ---
RECEIVED REPORT AT 0700, PT CALLED OUT TO USE BEDSIDE COMMODE. PT VOIDED AND HAD A SMALL BM. PT STATED THAT HE IS FEELING LIKE HE IS GETTING WORSE AND NOT BETTER. SLIGHT TEMP NOTED, BP'S UP, OTHER V/S WDL AT THIS TIME.
--- NOTE | 2019-10-07 08:30 | NUR ---
PT IS AAO OVERALL. TRACE EDEMA BILATERAL LOWER LEGS, UPPER LOBES CLEAR WITH THE LEFT SIDE DIMINIDHED. LOWER LOBES HAVE CRACKLES PRESENT AND SO DOES RIGHT MIDDLE LOBE. OVERALL STRENGTH +4, RADIAL PULSES +3, PEDAL PULSES +1, PT DENIES NUMBNESS/TINGLING IN LEGS OR ARMS. VAPOTHERM AT 30LO2 705 FIO2. RR WDL AT THIS TIME. PT AT THIS TIME IS ON HIS LEFT SIDE. PT IS HAVING SOME NAUSEA AND ZOFRAN TO BE GIVEN. WILL CONTINUE TO MONITOR.
--- NOTE | 2019-10-07 09:00 | NUR ---
Pt discussed in IDT with Dr. Alexander. Pt cont. to decline see progress notes.
--- NOTE | 2019-10-07 09:30 | NUR ---
ASSISTED PT TO BEDSIDE COMMODE. PT BACK IN BED. NO NEW CONCERNS NOTED.
--- NOTE | 2019-10-07 10:23 | NUR ---
PT AT THIS TIME IS RESTING ON HIS LEFT SIDE. V/S WDL WITHOUT TEMP INCLUDED. WILL TURN PT MANI.
--- NOTE | 2019-10-07 10:30 | NUR ---
MD SMITH WAS CALLED FOR A LASIX ORDER SINCE PT HAD CRACKLES IN THE BASES UP TO THE RML. ORDER FOR 40MG LASIX WAS RECEIVED.
--- NOTE | 2019-10-07 11:34 | NUR ---
LASIX WAS GIVEN. PT NOW IS PRONE SINCE 1115 WITH HEAD OF BED FLAT. PT SEEMS TO TOLERATE IT WELL SO FAR. PT AFEBRILE AT THIS TIME. PT HAD MORE BLODDY MUCUS SINCE START OF SHIFT THIS MORNING. V/S WDL AT THIS TIME. LOBES WERE NOT ASCULTATED WITH SECOND ASSESSMENT. WILL WAIT FOR LASIX TO ACT. URINE OUTPUT SO FAR HAS BEEN ADEQUATE. PT HAS NO NAUSEA OR PAIN AT THIS TIME. NO CHANGES WERE NOTED WITH SECOND SHIFT ASSESSMENT OTHERWISE.
--- NOTE | 2019-10-07 12:38 | NUR ---
PT IS SITTING AT BEDSIDE AT THIS TIME. BG 142, PT NOT WANTING TO EAT LUNCH AT THIS TIME. NO NEW CONCERNS NOTED.
--- NOTE | 2019-10-07 14:45 | NUR ---
LABS WERE DRAWN AND SENT AT 1425. LASIX WAS HELD SO FAR SINCE LAST BP WAS 101/65. WILL CONTINUE TO MONITOR. PHYSICAL THERAPY IN ROOM NOW.
--- NOTE | 2019-10-07 15:44 | NUR ---
UPPER LOBES ARE CLEAR, ONLY THE BASES NOW HAVE SOME CRACKLES PRESENT. URINE OUTPUT SINCE FIRST LASIX DOSE HAS BEEN 525MLS ONLY. NO TRACE BILATERAL LOWER LEG EDEMA NOTED. RADIAL PULSES +2, PEDIS PULSES +1, PT AFEBRILE AT THIS TIME. HR UP TO 120'S AT TIMES WHEN TRANSFERING TO BEDSIDE COMMODE. PT HAS NOT MUCH PHYSICAL STRENGTH RESERVE LEFT. VAPOTHERM BACK UP TO 70% FIO2 FROM 60% AT 1530 DUE TO O2 SATS <94%. PT HAS HAD SEVERAL BM'S TODAY, ALL GREEN IN COLOR. LASIX FOR 1400 STILL NOT GIVEN DUE TO LOW BP'S.
--- NOTE | 2019-10-07 17:35 | NUR ---
LASIX AFTERNOON DOSE HAS BEEN CHARTED NOT GIVEN DUE TO LOW BP'S AND MD VINES IS AWARE. AT THIS TIME AND SON ARE IN THE ROOM. V/S OVERALL ARE WDL. PT IS STILL ON VAPOTHERM 30L O2 70% FIO2. NO NEW CONCERNS WERE NOTED.
--- NOTE | 2019-10-07 20:00 | NUR ---
SHIFT REPORT RECEIVED FROM XIMENA PAGE. PT CALLED AT THIS TIME TO USE BATHROOM, UP TO BSC WITH SBA, VOIDED 225ML AND RETURNED TO BED. PT APPEARS EXHAUSTED AND REPORTS FEELING SOB. TEMP 99.2 ORALLY. BELONGINGS AND CALL LIGHT WITHIN REACH.
--- NOTE | 2019-10-07 20:45 | NUR ---
ASSESSMENT COMPLETED. PT IS LETHARGIC, ORIENTED. REPORTS 7/10 HEADACHE PAIN AND TEMP IS NOW 99.3, PRN TYLENOL GIVEN. LUNGS CLEAR IN UPPER LOBES, CRACKLES NOTED IN BILATERAL BASES. VAPOTHERM IN PLACE AT 30L @ 70%. HR PACED, RATE 60-70, WITH ACTIVITY HR INCREASES UP TO 120. BOWEL TONES ACTIVE, DENIES NAUSEA, ABDOMEN TENDER TO PALPATION. SKIN PALE, PEDAL PULSES WEAK AND BLE CAP REFILL SLIGHTLY SLOWED. NO EDEMA NOTED. IV SITES INTACT AND PATENT. PT DENIES FURTHER REQUESTS AT THIS TIME, CALL LIGHT AND BELONGINGS WITHIN REACH.
--- NOTE | 2019-10-07 22:11 | NUR ---
PT CALLED TO USE BATHROOM. UP TO BSC WITH SBA. PT HAD MIXED URINE WITH SEMI-LIQUID STOOL, UNABLE TO MEASURE OUTPUT. ELLA-ANAL AREA CLEANSED AND BARRIER CREAM APPLIED. BUTTOCKS SLIGHTLY REDDENED, BLANCHABLE AND SKIN INTACT. ASSISTED PT BACK TO BED. TEMP 99.4 ORALLY AND PT REPORTS HEADACHE PAIN IS UNCHANGED, WILL CONTINUE TO MONITOR. CALL LIGHT AND BELONINGS WITHIN REACH. FRESH ICE WATER PROVIDED.
--- NOTE | 2019-10-08 00:30 | NUR ---
PT SLEEPING SOUNDLY, LIGHTLY SOUNDING. DOES NOT APPEAR IN ANY DISTRESS. RESPIRATIONS EVEN AND UNLABORED. VAPOTHERM REMAINS IN PLACE, SETTINGS UNCHANGED. HR REMAINS PACED WITH RATE 60'S. AFEBRILE AT THIS TIME. WILL ALLOW FOR REST AND CONTINUE TO MONITOR.
--- NOTE | 2019-10-08 00:55 | NUR ---
PT SLEEPING SOUNDLY, LIGHTLY SNORING. DOES NOT APPEAR TO BE IN DISTRESS. RESPIRATIONS EVEN AND UNLABORED. VAPOTHERM REMAINS IN PLACE, SETTINGS UNCHANGED. HR REMAINS PACED WITH RATE 60'S. AFEBRILE AT THIS TIME. WILL ALLOW FOR REST AND CONTINUE TO MONITOR.
--- NOTE | 2019-10-08 01:50 | NUR ---
PT CALLED TO USE BATHROOM. UP WITH 1-PA TO [facility]. VOIDED 225ML. PERIAREA CLEANSED AND BARRIER CREAM APPLIED. PT STATES HIS HEADACHE HAS RESOLVED. TEMP 98.3 ORALLY AT THIS TIME. PT DENIES FURTHER REQUESTS. CALL LIGHT AND BELONGINGS WITHIN REACH.
--- NOTE | 2019-10-08 05:00 | NUR ---
ASSESSMENT COMPLETED. PT DENIES PAIN. TEMP OF 100.0 ORALLY, PRN TYLENOL GIVEN. LUNGS REMAIN CLEAR IN UPPERS, CRACKLES IN BASES BILATERALLY. VAPOTHERM IN PLACE, SETTINGS UNCHANGED. HR PACED, RATE IN 60'S UP TO 120 WITH ACTIVITY. BOWEL TONES ACTIVE, DENIES NAUSEA, ABDOMEN TENDER TO PALPATION. SKIN GROSSLY INTACT, BRUISE TO LEFT GROIN FROM PREVIOUS PROCEDURE UNCHANGED, NO HEMATOMA NOTED. IV SITES INTACT AND SALINE LOCKED. UP TO BSC TO VOID AND THEN RETURNED TO BED, SOB WITH ACTIVITY. LABS DRAWN, PT TOLERATED WELL. NO FURTHER REQUESTS AT THIS TIME. CALL LIGHT AND BELONGINGS WITHIN REACH.
--- NOTE | 2019-10-08 08:00 | NUR ---
PT CALLED OUT TO USE BEDSIDE COMMODE. PT VOIDED 150MLS. PT STATED THAT HE FEELS THE SAME YESTERDAY. TEMP 99.1 F AT THIS TIME, OTHER V/S WDL. ALL LOBES AT THIS TIME ARE CLEAR BUT DIMINISHED. VAPO THERM AT 30L 02 AND 70% FIO2. ABDOMEN FEELS TIGHT PT STATED BUT DENIES PAIN. BOWEL TONES ARE ACTIVE. NO PERIPHERAL EDEMA NOTED, RADIAL PULSES +2, PEDAL PULSES +1 WITH CAP REFILL <3SEC AT THIS TIME AND WARM TO TOUCH AT THIS TIME. PT OVERALL IS AAO. FOR NOW I WILL HOLD ON THE 40MG IV LASIX SCHEDULED FOR 0900 SINCE PT JUST HAD 25MG OF COREG. WILL MONITOR BP. PT WAS SITTING AT BEDSIDE FOR A FEW AND NOW IS ON HIS LEFT SIDE WITH HEAD OF BED FLAT. WILL CONTINUE TO MONITOR.
--- NOTE | 2019-10-08 09:22 | NUR ---
PT AT THIS TIME IS STILL ON HIS LEFT SIDE. PT APPEARS TO BE SLEEPING. NO NEW CONCERNS NOTED AT THIS TIME.
--- NOTE | 2019-10-08 10:02 | NUR ---
PT AT THIS TIME IS ON HIS BACK AND STILL SLEEPING. WILL CONTINUE TO MONITOR.
--- NOTE | 2019-10-08 12:00 | NUR ---
UPPER LOBES ARE CLEAR AT THIS TIME. PT HAS FINE CRACKLES PRESENT NOW UP TO MIDDLE. PT HAS NO CHEST PAIN OR ANY OTHE PAIN. PT ALSO HAS NO N/V. ABD IS TIGHT AND UNCHANGED STATED EARLIER BY PT. NO PERIPHERAL EDEMA NOTED. LEFT PEDIS PULSE IS DECREASED SOME AT THIS TIME VS THIS MORNING. PT STATED THAT HE FEELS WORSE NOW THAN YESTERDAY. O2 NEEDS ARE UNCHANGED. PT OVERALL STILL AAO. PT AFEBILE AT THIS TIME. MD VINES WAS CALLED AT 1130 IN REGARDS TO HELD LASIX DOSE AT 0900. WILL HOLD IT FOR NOW AND AFTER MD EVALUATES PT IT MAY BE GIVEN.
--- NOTE | 2019-10-08 12:27 | NUR ---
PT WAS SITTING UP FOR 1200 ASSESSMENT. AT THIS TIME, PT IS PRONE IN BED WITH HOB FLAT.
--- NOTE | 2019-10-08 12:30 | NUR ---
BED LINNENS AND GOWN WAS CHANGED WITH 1200 ASSESSMENT.
--- NOTE | 2019-10-08 14:21 | NUR ---
PT AT THIS TIME IS SLEEPING. PT IS BACK ON HIS LEFT SIDE AT THIS TIME. WHILE I WAS AT LUNCH, PT WAS ASSISTED TO BEDSIDE COMMODE.
--- NOTE | 2019-10-08 15:27 | NUR ---
RT HAD TO CHANGE FLUID BAG ON VAPOTHERM. PT HAD SOME NAUSEA AND PRN ZOFRAN 4MG WAS GIVEN. PT NOW IS ON HIS RIGHT SIDE AND RESTING. PT STATED AGAIN THAT HE WAS FEELING BAD. NO CHANGE IN O2 NEEDS.
--- NOTE | 2019-10-08 17:29 | NUR ---
PT HAD ANOTHER BM AND AN UNMEASURED VOID. PT STILL FEELS BAD. TEMP A BIT ELEVATED AGAIN, PRN TYLENOL GIVEN. NO CHANGES WERE NOTED WITH THRID ASSESSMENT. PLEASE NOTE THAT LUNG LOBES WERE NOT ASCULTATED. NO NEW CONCERNS NOTED.
--- NOTE | 2019-10-08 18:14 | NUR ---
PT STILL SITTING AT SIDE OF BED. V/S WDL, NO NEW CONCERNS NOTED AT THIS TIME.
--- NOTE | 2019-10-08 19:30 | NUR ---
SHIFT REPORT RECEIVED FROM XIMENA PAGE. PT CALLED AT THIS TIME BECAUSE IV PUMP WAS ALARMING. IV TUBING KINKED, FLUSHED WNL, TAPED TO MAINTAIN PATENCY. PT DENIES NEED TO USE BATHROOM AT THIS TIME. NO FURTHER REQUESTS, CALL LIGHT WITHIN REACH.
--- NOTE | 2019-10-08 20:30 | NUR ---
ASSESSMENT COMPLETED AT THIS TIME. PT APPEARS LETHARGIC, IS AT BASELINE ORIENTATION. DENIES PAIN. LUNGS CLEAR/DIM IN UPPERS, CRACKLES NOTED TO BILATERAL BASES. VAPOTHERM IN PLACE AT 30L @ 70%. HR PACED, RATE MOSTLY IN 60'S, OCCASIONALLY INCREASES TO 120, DENIES CHEST PAIN. BOWEL TONES ACTIVE, DENIES NAUSEA AND ABDOMINAL PAIN. SKIN GROSSLY INTACT, NO EDEMA NOTED, BRUISE TO LEFT GROIN UNCHANGED. 1+ PEDAL PULSES, NORMAL CAP REFILL. IV DRESSING CHANGED TO BOTH IV SITES, INTACT AND PATENT. PT DENIES NEEDING TO USE BATHROOM AT THIS TIME, WILL CALL WHEN HE IS READY. NO FURTHER REQUESTS AT THIS TIME, CALL LIGHT WITHIN REACH.
--- NOTE | 2019-10-08 22:30 | NUR ---
PT APPEARS TO BE RESTING COMFORTABLY, NO APPARENT DISTRESS. RESPIRATIONS EVEN AND UNLABORED, RR:23, SPO2:93%, VAPOTHERM IN PLACE. HR:61. WILL ALLOW FOR REST AND CONTINUE TO MONITOR.
--- NOTE | 2019-10-09 00:30 | NUR ---
ASSESSMENT COMPLETED, PT WOKE EASILY WHEN I ENTERED ROOM. TEMP 100.0 AT THIS TIME, PRN TYLENOL ADMINISTERED. LUNGS REMAIN DIM IN THE UPPERS WITH CRACKLES IN THE BASES, VAPOTHERM IN PLACE WITH SETTINGS UNCHANGED. CONTINUES TO HAVE OCCASIONAL HEMOPTYSIS. PT IS ALSO NOW REPORTING CHEST PAIN WHEN HE COUGHS. HR PACED IN THE 60'S, OCCASIONALLY INCREASES TO 120. BOWEL TONES ACTIVE, DENIES NAUSEA. PT UP TO BSC WITH SBA, WITH ACTIVITY PT IS DYSPNIC AND DESATURATES TO 86%, RETURNS TO >90% ONCE BACK IN BED. ELLA-CARE PROVIDED, BARRIER CREAM APPLIED TO BUTTOCKS, AND NEW ATTENDS IN PLACE. FRESH ICE WATER PROVIDED. PT WILL NOTIFY RN IF CHEST PAIN WORSENS. CALL LIGHT AND BELONGINGS WITHIN REACH.
--- NOTE | 2019-10-09 01:35 | NUR ---
PT ACCIDENTALLY REMOVED NASAL PRONGS FROM NARES AND DESATURATED TO 71%. PLACED NASAL PRONGS BACK INTO POSITION AND SATS QUICKLY RETURNED BACK TO >90%.
--- NOTE | 2019-10-09 02:28 | NUR ---
IN TO CHECK ON PT, TEMP NOW 99.4 ORALLY. PT DENIES ANY PAIN, INCLUDING CHEST PAIN AT THIS TIME. PT DENIES NEEDING TO USE BATHROOM. NO FURTHER REQUESTS, CALL LIGHT WITHIN REACH.
--- NOTE | 2019-10-09 05:00 | NUR ---
PT CALLED TO USE BATHROOM, UP WITH SBA [place] [facility] [place] 400[place] MIXED URINE AND SEMI LIQUID STOOL. ELLA-CARE PROVIDED AND BARRIER BREAM APPLIED TO BUTTOCKS. ASSESSMENT UNCHANGED, DENIES PAIN INCLUDING CHEST PAIN. LABS DRAWN. PRAYER SHAWL FROM [facility] PROVIDED AND "PRAYER FOR HEALING" READ TO PT AND LEFT AT BEDSIDE, PT APPRECIATIVE AND THANKFUL FOR CARE. PT DENIES FURTHER REQUESTS AT THIS TIME. CALL LIGHT AND BELONGINGS WITHIN REACH.
--- NOTE | 2019-10-09 07:30 | NUR ---
REPORT RECIEVED. O2 CANNULA OUT OF PATIENT NOSE. O2 SAT TO 70. CANNULA REINSERTED, O2 SATS BACK TO 90'S WITHIN 2MIN. TO COMMODE TO VOID AND EXPELL MED GREEN LOOSE LIQUID STOOL. SPONGE BATH GIVEN WHILE UP. TOLERATED WELL. THEN BACK TO BED WITH ASSIST.
--- NOTE | 2019-10-09 08:00 | NUR ---
ASSESSMENT DONE. PATIENT STATES HE DOESN'T FEEL WELL AT ALL. HAS MILD ABD DISCOMFORT.
--- NOTE | 2019-10-09 08:20 | NUR ---
ACCUCHECK-101. FED PATIENT POACHED EGGS, FEW BITES OF YOGART, ENSURE. TALKED WITH PATIENT ABOUT POC FOR DAY. INDICATES UNDERSTANDING. PATIENT IS VERY APPRECIATIVE FOR THE CARE HE HAS BEEN RECEIVING. ENCOURAGE TO REST MUCH POSSIBLE. IS VERY TIRED. ROUTINE MEDICATIONS GIVEN.
--- NOTE | 2019-10-09 09:00 | NUR ---
assisted patient with breakfast. ENCOURAGED TO TAKE PO AND USE I.S. AND ACEPELLA.
--- NOTE | 2019-10-09 09:30 | NUR ---
TO COMMODE TO VOID AND HAVE ANOTHER BM, THEN TO BED.
--- NOTE | 2019-10-09 12:00 | NUR ---
ASSESSMENT DONE. LUNGS, HEART TONES, VBOWEL SOUND NOT ASSESSED PAPR USED. UP TO COMMODE TO VOID, THEN TO CHAIR FOR LUNCH.
--- NOTE | 2019-10-09 15:45 | NUR ---
restful at this time.
--- NOTE | 2019-10-09 20:45 | NUR ---
PATIENT RESTING IN BED. REPORTS FEELING TIRED BUT NOT SOB OR FEVERISH. ORAL TEMP 99.3 F. VS STABLE. PATIENT TOLERATING VAPO THERM AT 70% Fi02. RR 18-20S. PATIENT UP TO THE BSC, URINE MIXED WITH A SMALL AMOUNT OF LIQUID BM. PATIENT'S BOTTOM IS SORE AND RED, BARRIER CREAM APPLIED. PATIENT IS MILD SOB WITH ACTIVITY. RETURNED TO BED, SIDE LAYING POSITION. PATIENT RECOVERED TO 90% ON VAPOTHERM AFTER 3-4 MINS. PATIENT THEN FELT THE NEED TO VOID AGAIN, BACK UP TO THE BSC. PATIENT DID NOT VOID. NEW ATTENDS IN PLACE. PATIENT BACK TO LEFT SIDE LYING POSIITON. CALL LIGHT IN REACH. PATIENT O2 SATS AT 88% ON VAPOTHERM FOR SEVERAL MINS. PATIENT THEN BACK UP TO 90% O2 SAT.
--- NOTE | 2019-10-09 22:45 | NUR ---
Helped pt to comode, pt had BM, pt is back in bed.
--- NOTE | 2019-10-10 00:30 | NUR ---
PATIENT RESTING IN BED. O2 SAT 91% ON VAPO THERM AT 70% Fi02. RR 20'S. PATIENT DENIES ANY NEEDS AT THIS TIME. VS STABLE. ALLOWED PATIENT TO REST.
--- NOTE | 2019-10-10 01:45 | NUR ---
PATIENT UP TO VOID. PATIENT FEELS CHILLED AND IS WARM TO THE TOUCH. ORAL TEMP 101.0F. PRN TYLENOL PROVIDED. PATIENT RETURNED TO BED. ASSISTED TO TURN TO LEFT SIDE FOR COMFORT. PATIENT TOLERATED ACTIVITY WELL. DENIES ANY FURTHER NEEDS. CALL LIGHT IN REACH.
--- NOTE | 2019-10-10 04:30 | NUR ---
PATIENT UP TO BSC WITH CONTACT CENTER REPRESENTATIVE ASSIST. PATIENT TOLERATED WELL. ASSESSMENT UNCHANGED. TOLERATING VAPOTHERM AT 70% Fi02. RR 20'S. VS STABLE. ORAL TEMP IMPROVED, 98.3 F.
--- NOTE | 2019-10-10 04:37 | NUR ---
Assisted pt to comode, took his temperature, helped pt back to bed.
--- NOTE | 2019-10-10 07:45 | NUR ---
LYING IN BED ON BACK AT THIS TIME. CALL LIGHT IN REACH, BED RAILS UP X2. RESPIRATIONS EVEN AND UNLABORED AT THIS TIME.
--- NOTE | 2019-10-10 09:48 | NUR ---
ASSESSMENT COMPLETED. ASSIST TO BEDSIDE COMMODE WITH 1 PERSON ASSIST. CONTINENT OF STOOL AND URINE. ASSIST WITH BREAKFAST. STATES HE IS COLD, COVERED WITH BLANKETS WHEN FEVER RULED OUT. VS OBTAINED. STATES SOME CRAMPING IN HIS ABDOMEN. NO OTHER DISCOMFORT AT THIS TIME. STATES HE GOT A LITTLE BIT OF REST LAST NIGHT. DOES NOT WANT TV OR MUSIC ON. STATES "I'M SICK OF BEING SICK."
--- NOTE | 2019-10-10 11:07 | NUR ---
SITTING UP IN RECLINER. RESPIRATIONS EVEN AND UNLABORED, REMAINS ON VAPOTHERM.
--- NOTE | 2019-10-10 12:44 | NUR ---
SITTING UP IN CHAIR AT THIS TIME. ASSESSMENT COMPLETED. FEEDING SELF LUNCH. DENIES PAIN. CALL LIGHT IN REACH.
--- NOTE | 2019-10-10 14:15 | NUR ---
SITTING UP IN RECLINER AT THIS TIME. CALL LIGHT IN REACH. RESPIRATIONS EVEN AND UNLABORED.
--- NOTE | 2019-10-10 15:02 | NUR ---
SITTING UP IN CHAIR. TEMPERATURE OBTAINED, DECREASED FROM PREVIOUS TEMP. STATES HE DOES NOT NEED TO VOID OR HAVE BM AT THIS TIME. DOES NOT WANT TO RETURN TO BED, WOULD LIKE TO REMAIN IN RECLINER. DENIES PAIN AND OTHER NEEDS. CALL LIGHT IN REACH. FEET ELEVATED.
--- NOTE | 2019-10-10 15:53 | NUR ---
Sitting up in chair. CALL LIGHT IN REACH. RESPIRATIONS EVEN AND UNLABORED.
--- NOTE | 2019-10-10 16:51 | NUR ---
USES CALL LIGHT FOR ASSISTANCE. STATES HE NEEDS TO URINATE. ASSIST TO BEDSIDE COMMODE, CONTINENT OF URINE. ASKS "AM I GOING TO SURVIVE THIS." INFORMED PATIENT THAT SINCE THIS AM HE HAS SHOWN IMPROVEMENT IN STRENGTH, WILL LIKELY NEED PHYSICAL THERAPY. INFORMED PATIENT THAT HE IS STILL ON A HIGH DOSE OF OXYGEN AND WE WILL LIKELY BE ABLE TO START WEANING HIM OFF IN A DAY OR TWO IF HE CONTINUES TO IMPROVE. DENIES PAIN. CALL LIGHT IN REACH. UP IN CHAIR. DOES NOT WANT TO ELEVATE FEET AT THIS TIME.
--- NOTE | 2019-10-10 17:51 | NUR ---
UP IN CHAIR MOST OF TODAY. CONTINUES ON VAPOTHERM. ALERT AND ORIENTED TO ALL BUT DATE TODAY. ASKS ABOUT HIS CONDITIONS. VERBALIZES FEAR OF . LOOSE STOOLS X3 TODAY. CONTINENT OF URINE, NO INCONTINENT EPISODES TODAY. TEMP UP TO 99.6 TODAY, DECREASES WITHOUT INTERVENTION. INCREASING APPETITE NOTED WELL.
--- NOTE | 2019-10-10 19:30 | NUR ---
SHIFT REPORT RECEIVED, PATIENT UP TO BSC WITH DEFENSIVE LINE COACH ASSIST. O2 SAT 90% ON VAPOTHERM AT 70% Fi02.
--- NOTE | 2019-10-10 20:07 | NUR ---
ASSITED PT TO BEDSIDE COMODE, HELPED PT BACK TO RECLINER.
--- NOTE | 2019-10-10 20:30 | NUR ---
PATIENT'S SON CALLED FOR AN UPDATE WHICH WAS PROVIDED. PATIENT'S SON THEN SPOKIE TO HIM VIA HIS CELL PHONE.
--- NOTE | 2019-10-10 20:35 | NUR ---
PATIENT UP TO THE BSC, SMALL AMOUNT OF URINE MIXED WITH SMALL AMOUNT OF BM. PATIENT APPEARS TIRED AND ASK HOW HIS PROGRESS IS LOOKING. ENCOURAGED PATIENT TO REST AND SHARED HIS VS AND BASIC PLAN OF CARE. PATIENT RECEIVED 1 UNIT OF INSULIN PER SS. ORAL TEMP 100.0 F. PRN TYLENOL PROVIDED. PATIENT ASSISTED WITH EVENING CARES AND INTO BED. PATIENT TOLERATED WELL. VAPOTHERM AT 30L WITH 70% Fi02. PATIENT CONTINUES TO HAVE BLOODY SPUTUM WELL.
--- NOTE | 2019-10-10 22:30 | NUR ---
PATIENT APPEARS TO BE SLEEPING SOUNDLY ON HIS RIGHT SIDE. VAPOTHERM IN PLACE. O2 SAT 95%. RR 18.
--- NOTE | 2019-10-11 00:30 | NUR ---
PATIENT SLEEPING SOUNDLY. WOKE EASILY TO VOICE. PATIENT VS STABLE, ORAL TEMP 98.5 F. PATIENT UP TO THE BSC, URINE MIXED WITH A SMALL AMOUNT OF LIQUID STOOL. ELLA CARE PROVIDED AND BARRIER CREAM APPLIED. PATIENT RETURNED TO BED. CUSHION PADS APPLIED TO TUBING FROM VAPOTHERM AROUND THE EARS.
--- NOTE | 2019-10-11 02:09 | NUR ---
Helped pt to bedside comode, assisted pt back to bed.
--- NOTE | 2019-10-11 04:45 | NUR ---
PATIENT'S 02 DESAT TO 80%. VAPOTHERM TUBING WAS DISPLACED FROM PATIENT'S NARES. PATIENT'S O2 SAT IMPROVED WHEN O2 TUBING WAS PLACED BACK IN POSITION. PATIENT DENIES NEED TO VOID AT THIS TIME. CALL LIGHT IN REACH.
--- NOTE | 2019-10-11 06:55 | NUR ---
Helped pt to comode, prayed with pt at his request, tucked pt back into bed.
--- NOTE | 2019-10-11 08:15 | NUR ---
PT AT THIS TIME STATED THAT HE IS NOT FEELING WELL OVERALL. PT STATED THAT HE HAS A HEADACHE FROM THE CANNULA. V/S AT THIS TIME ARE WDL. LOBES WERE NOT ASCULTATED. NO PERIPHERAL EDEMA NOTED. RADIAL PULSES +2, PEDAL PULSES+1. ABD IS STILL FIRM AND SOMEWHAT TENDER TO TOUCH. PT IS WILLING TO EAT SOME BREAKFAST THIS MORNING. NO INSULIN WAS NEEDED BEFORE BREAKFAST. O2 NEEDS ARE UNCHANGED.
--- NOTE | 2019-10-11 09:04 | NUR ---
PT ATE ABOUT 40% OF HIS BREAKFAST. PT HAD A BM AND A VOID. PT NO IS STILL SITTING AT BEDSIDE. NO NEW CONCERNS NOTED.
--- NOTE | 2019-10-11 09:21 | NUR ---
PT NOW IS ON HIS RIGHT SIDE RESTING.
--- NOTE | 2019-10-11 10:05 | NUR ---
PT WAS SITTING UP A FEW MINIUTES AGO. PT NOW BACK IN BED.
--- NOTE | 2019-10-11 11:37 | NUR ---
PT AT THIS TIME IS STILL SLEEPING. NO NEW CONCERNS NOTED AT THIS TIME.
--- NOTE | 2019-10-11 12:30 | NUR ---
PT AT THIS TIME STATED THAT HE IS FEELING BETTER OVERALL. PT ALSO DENIES A HEADACHE AND ANY OTHER PAIN AT THIS TIME. PT ALSO DENIES NAUSEA. PT HAD ANOTHER VOID AND A VERY SMALL BM WHICH IS STILL VERY LOOSE. SECOND SHIFT ASSESSMENT WAS THE SAME THE FIRST. LUNG LOBES WERE NOT ASCULTATED DUE TO PAPPR. V/S WDL OVERALL.
--- NOTE | 2019-10-11 12:47 | NUR ---
PT NOW IS PRONE IN BED RESTING. O2 SATS ARE WDL. WILL CONTINUE TO MONITOR.
--- NOTE | 2019-10-11 14:07 | NUR ---
PT AT THIS TIME IS STILL SLEEPING PRONE. O2 SATS STILL >95% SO FAR. NO NEW CONCERNS NOTED AT THIS TIME.
--- NOTE | 2019-10-11 14:14 | NUR ---
PT IS STILL UNDER PRECAUTIONS, PT ASLEEP XIMENA YORK REQUESTED I LET HIM SLEEP. SHE WILL INFORM HIM I WAS HERE, WILL FOLLOW
--- NOTE | 2019-10-11 14:54 | NUR ---
PT IS AWAKE SITTING AT SIDE OF BED. PHYSICAL THERAPY WORKED WITH PT.
--- NOTE | 2019-10-11 15:22 | NUR ---
SPOKE WITH SON LILLIAN [phone] BY PHONE. QUESTIONS ANSWERED REGARDING PATIENTS VS. HE STATES HE SPOKE WITH LAST NIGHT AND HE WAS ENCOURAGED THAT PATIENT APPARENTLY SAT UP OUT OF BED FOR AWHILE THIS WEEKEND. WE DISCUSSED PATIENT MAY BE IN HOSPITAL FOR AN EXTENDED TIME AND HE CAN CALL ANY TIME TO CHECK ON HIM AND GET UPDATES.
--- NOTE | 2019-10-11 17:56 | NUR ---
THIRD ASSESSMENT WAS UNCHANGED FROM THE FIRST AND THE SECOND. PT HAS BEEN AFEBRILE ALL DAY SO FAR. OTHER V/S ARE WDL ASLO. URINE OUTPUT IS ADQUATE, PT STATED THAT HE IS FEELING BETTER AT THIS TIME. PT ALSO STATED THAT HE HAD SOME RIGHT SIDED CHEST PAIN WHICH SUBSIDED ON ITS OWN, MD VINES IS AWARE. PT IS EATING SOME DINNER WE SPEAK. NO NEW CONCERNS NOTED AT THIS TIME. PT DID TURN FREQUENTLY THIS SHIFT.
--- NOTE | 2019-10-11 18:26 | NUR ---
RT IN ROOM. PT HAS RALES AND EXIRATORY WHEEZING PRESENT. ALBUTEROL WAS ORDERED.
--- NOTE | 2019-10-11 18:33 | NUR ---
RT JUST TOLD ME THAT PT ALSO HAS CRACKLES PRESENT THOUGHOUT. WILL CALL MD VINES FOR LASIX ORDER.
--- NOTE | 2019-10-11 20:36 | NUR ---
SHIFT REPORT RECEIVED FROM XIMENA PAGE. ASSESSMENT COMPLETED AT THIS TIME, LIMITED DUE TO PAPR PPE. PT IS ALERT/ORIENTED. REPORTS HEADACHE AND CONGESTION THAT HE DESCRIBES "BUZZING IN EARS." AFEBRILE, PRN TYLENOL GIVEN. PT REPORTS THAT IT FEELS SOMEWHAT BETTER AFTER SITTING UP THE HEAD OF HIS BED. DENIES CHEST PAIN AND SOB, RESPIRATIONS EVEN AND UNLABORED, VAPOTHERM IN PLACE AT 30L @ 70%. HR PACED, OCCASIONALLY TACHYCARDIC UP TO 120'S. ABDOMEN SLIGHTLY TENDER TO PALPATION, DENIES NAUSEA. SKIN GROSSLY INTACT, SCATTERED BRUISING. IV SITES INTACT, PATENT. PT DENIES NEED FOR BATHROOM AT THIS TIME. PLAN OF CARE DISCUSSED WITH PT, QUESTIONS ANSWERED. FRESH ICE WATER PROVIDED AND PULSE OX REPOSITIONED. NO FURTHER REQUESTS, CALL LIGHT WITHIN REACH.
--- NOTE | 2019-10-11 21:35 | NUR ---
PT UP TO BSC WITH SBA. VOIDED 125ML. PERICARE PROVIDED AND BARRIER CREAM APPLIED TO BUTTOCKS. PT RETURNED TO BED. NO FUTHER REQUESTS AT THIS TIME, CALL LIGHT WITHIN REACH.
--- NOTE | 2019-10-11 21:56 | NUR ---
PT CALLED TO STATE HE HAD "MESSED THE BED." IN TO CHECK ON PT WHO STATED WHEN HE COUGHED HE FELT LIKE HE MAY HAVE BEEN INCONTINENT OF STOOL. UP TO BSC, PT HAD SCANT AMOUNT OF STOOL IN ATTENDS AND ANOTHER QUARTER-SIZED AMOUNT IN BSC. PERICARE PROVIDED, NEW ATTENDS AND CHUX IN PLACE. PT RETURNED TO BED. STATES HIS HEADACHE IS STARTING TO IMPROVE. NO OTHER REQUESTS. CALL LIGHT WITHIN REACH.
--- NOTE | 2019-10-11 23:21 | NUR ---
PT RESTING WITH EYES CLOSED, NO APPARENT DISTRESS. RESPIRATIONS EVEN AND UNLABORED, RR:20, HR: 62, SPO2: 90%. VAPOTHERM REMAINS IN PLACE WITH SETTINGS UNCHANGED. WILL ALLOW FOR REST AND CONTINUE TO MONITOR.
--- NOTE | 2019-10-11 23:59 | NUR ---
PT HAD PULLED OFF NASAL CANNULA WHILE ASLEEP AND DESATURATED TO 72%. REPOSITIONED CANNULA AND SATS QUICKLY YG TO >90%. CURRENTLY 91%. PT SLEEPING, NO APPARENT DISTRESS. RESPIRATIONS EVEN AND UNLABORED. HR REMAINS PACED, RATE 67 AT THIS TIME. WILL ALLOW FOR REST AND CONTINUE TO MONITOR.
--- NOTE | 2019-10-12 02:03 | NUR ---
PT APPEARS TO BE SLEEPING, NO APPARENT DISTRESS. RESPIRATIONS EVEN AND UNLABORED RR: 22, SPO2:91%, HR: 65. VAPOTHERM IN PLACE AND UNCHANGED. WILL CONTINUE TO MONITOR.
--- NOTE | 2019-10-12 04:45 | NUR ---
ASSESSMENT COMPLETED. PT DENIES PAIN. LOW GRADE TEMP 99.4, PRN TYLENOL GIVEN. LUNGS COARSE, AUDIBLE UPPER AIRWAY WHEEZE NOTED, NEB GIVEN. REMAINDER OF ASSESSMENT UNCHANGED. PT UP TO BSC WITH 1-PA, HAD 425ML MIXED URINE AND SEMI-LIQUID STOOL. PERICARE PROVIDED. NO FURTHER REQUESTS AT THIS TIME, CALL LIGHT WITHIN REACH.
--- NOTE | 2019-10-12 05:44 | NUR ---
PT'S SATURATIONS DECREASED TO 85%, IN TO CHECK ON PT. NASAL CANNULA WAS CORRECTLY POSITIONED. INCREASED VAOPTHERM SETTINGS TO 35L @ 75%. SATS YG TO 92-94%.
--- NOTE | 2019-10-12 06:20 | NUR ---
RECHECKED TEMP 98.7 ORALLY. LASIX GIVEN EARLY DUE TO COASE LUNG SOUNDS THROUGHOUT. VITAL SIGNS STABLE. PT DENIES REQUESTS.
--- NOTE | 2019-10-12 06:57 | NUR ---
PT CALLED, UP TO BSC WITH SBA, HAD 225ML MIXED URINE AND SEMI LIQUID STOOL. PERICARE, BARRIER CREAM AND NEW ATTENDS PROVIDED. RETURNED TO BED. NO FURTHER REQUESTS, CALL LIGHT WITHIN REACH.
--- NOTE | 2019-10-12 08:10 | NUR ---
ALL LOBES HAVE CRACKLES PRESENT THIS MORNING. PT NOW ON 35LO2 AND 75% FIO2 SINCE EARLIER THIS AM. PT IS ALOS MORE OFTEN TACHYPNIC SINCE START OF SHIFT AND HAS MORE FREQUENT EPISODES WHERE HE DESATS INTO THE LOW 80'S. 20MG IV LASIX WAS GIVEN EARLY. ABDOMEN IS MORE DISTENDED AND FIRM THIS MORNING, PT NOW ALSO ONCE AGAIN HAS TRACE BILATERAL LOWER LEG EDEMA AND BILATERAL HAND EDEMA WHICH IS NEW. WILL CONTINUE TO MONITOR. PT OVERALL IS NOT FEELING WELL WAS STATED BY HIM. PT SO FAR AFEBRILE, OTHER V/S WDL AT THIS TIME. PT NOW PRONE IN BED. NO INSULIN WAS GIVEN DUE TO BG OF 99.
--- NOTE | 2019-10-12 09:37 | NUR ---
PT AT THIS TIME IS SLEEPING AND ON HIS LEFT SIDE. O2 SATS BETTER >90% ON 35L 75% FIO2.
--- NOTE | 2019-10-12 10:35 | NUR ---
IN ROOM WITH PT AT THIS TIME. PT EATING BREAKFAST AND SITTING AT BEDSIDE. HR HAS BEEN IN THE LOW 120'S SINCE PT IS SITTING UP WHICH IS ABOUT 10 MINUTES AT THIS TIME. RESUMING BP'S HOURLY AT THIS POINT.
--- NOTE | 2019-10-12 11:21 | NUR ---
PT FINISHED BREAKFAST. DENTURES ARE IN CUP BEING CLEANED. PT HAS NEW GOWN AND FACE WAS WASHED. PT REFUSED BATH. PT SINCE 1115 IS PRONE AND IN [place]SE [place]. WILL CONTINUE TO MONITOR.
--- NOTE | 2019-10-12 12:32 | NUR ---
MD VINES WAS CALLED DUE TO HR IN THE LOW 120'S. NO NEW ORDERS WERE RECEIVED. BP WDL AT THIS TIME AND SO ARE O2 SATS ON 35L O2 AND 75% FIO2. RR AT 20 STEADY. PT STILL PRONE IN [place]SE [place] AND SLEEPING.
--- NOTE | 2019-10-12 14:18 | NUR ---
PT NOW HAS A SLIGHT TEMP AGAIN OF 99.3 F. PRN TYLENOL WAS GIVEN. PT AGAIN ALSO HAS A HEADACHE FROM THE VAPOTHERM I BELIEVE. PT NOW AWAKE AND SITTING AT BEDSIDE. LOPRESSON IV 5MG GIVEN. HR STILL IN THE 120'S SO FAR. O2 NEEDS ARE UNCHANGED STILL. RR IN THE LOW 20'S, BP WDL.
--- NOTE | 2019-10-12 14:21 | NUR ---
PT NOW IS ON HIS RIGHT SIDE IN [place]. WILL CONTINUE TO MONITOR.
--- NOTE | 2019-10-12 16:17 | NUR ---
THIRD SHIFT ASSESSMENT IS UNCHANGED FROM THE SECOND AND THE FIRST. LOBES ARE FULL OF CRACKLES STATED BY RT. IT WAS THE SAME FINDING WITH THE FIRST ASSESSMENT THIS MORNING. PT AT THI TIME IS SITTING AT BEDSIDE. PT HAS BEEN PRONE ALL AFTERNOON SO FAR. TEMP NOW 99.9 F HAS INCREASED SINCE TYLENOL WAS GIVEN. LABS WERE DRAWN AND SENT. HR STILL IN THE 120'S OR UPPER ONE TEENS. RR STEADY AT 20 FOR THE MOST PART AT THIS TIME. ABD IS FIRM AND DISTENDED STILL. TRACE EDEMA IN BILATERAL LOWER LEGS AND HANDS PRESENT STILL. O2 NEEDS ARE UNCHANGED.
--- NOTE | 2019-10-12 17:09 | NUR ---
Update from Rn for Xander as he is sleeping. Does not feel as well today as he did yesterday.
--- NOTE | 2019-10-12 17:20 | NUR ---
orders recieved to place wolfe cath. THIS DONE PER CANE SPLICER. 16 FR. WOLFE CATH PLACED W/O DIFFICULTY FOR RETURN OF 300 ML OF CLEAR YELLOW URINE. WOLFE EMPTIED THEN LASIX 80 MG IV GIVEN PER ORDERS.
--- NOTE | 2019-10-12 17:50 | NUR ---
OOB TO COMMODE, NO BM. AFTER ON COMMODE FOR 20 MIN, PATIENT TRANSFERRED TO CHAIR FOR DINNER. REMDESIVER HUNG PER ORDERS. PATIENT IS MOVING WELL. IS VERY THANKFUL FOR ALL THE CARE HE IS GETTING. REMAINS ON VAPOTHERM AT 75% FIO2 AND 35 LITERS FLOW.
--- NOTE | 2019-10-12 17:58 | NUR ---
AT 1756 LAB CALLED WITH A CRITICAL TROPONIN OF 0.031. MD GUILLERMO WAS CALLED THAT SAME MINUTE. NO NEW ORDERS WERE RECEIVED.
--- NOTE | 2019-10-12 18:32 | NUR ---
REMAINS IN CHAIR, EATING DINNER.
--- NOTE | 2019-10-12 19:15 | NUR ---
Report received, orders acknowledged. Patient laying in bed, SpO2 of 90% on vapotherm, 35L, 75% FiO2. Call light within reach.
--- NOTE | 2019-10-12 20:00 | NUR ---
Patient laying in bed, SpO2 of 88% on vapotherm: 35L, 75% FiO2. RR of 20. Patient reports urge for bowel movement, up to BSC with SBA. No BM produced. HR in the 120's with ambulation. Returns to bed with SBA, HR returns to 60's after several minutes. Vital signs taken, assessment complete. Patient afebrile. Crackles auscultated throughout lung lobes. Trace edema noted in bilateral lower extremities. Abdomen is firm, patient denies tenderness to palpation. Mooney drained 350 mls. Patient reports sinus congestion. Denies needs at this time, call light within reach.
--- NOTE | 2019-10-12 21:00 | NUR ---
Dr. Zaragoza notified of patient condition. Orders acknowledged.
--- NOTE | 2019-10-12 21:15 | NUR ---
PRN psuedoephedrine given (see MAR) and flonase. Patient laying in bed with SpO2 of 91% on vapotherm: 35L, 75% FiO2. Deneis further needs, call light within reach.
--- NOTE | 2019-10-12 21:45 | NUR ---
STATES NERI IS "OK", BUT NOT SLEEPING.
--- NOTE | 2019-10-13 03:25 | NUR ---
Patient laying in bed, SpO2 of 90% on 35L, 75% FiO2. Mooney emptied, 1100 mls of red-tinged urine. Vital signs taken, patient afebrile. Patient sits up at edge of bed with feet on floor, lung sounds auscultated. Crackles noted throughout lobes. Patient lays back down in bed on left side. Denies needs at this time, call light within reach.
--- NOTE | 2019-10-13 04:30 | NUR ---
Patient removed vapotherm, SpO2 falls to mid-60's. This RN in room to assist patient with putting vapotherm back on, sats slowly climb back to 91%. Vapotherm settings of 35L, 75% FiO2. Patient rotated onto right side. Water refreshed, denies needs at this time. Call light within reach.
--- NOTE | 2019-10-13 05:30 | NUR ---
Patient laying in bed, SpO2 at 89-91% on vapotherm: 35L, 75% FiO2. Labs drawn. No further needs, call light within reach.
--- NOTE | 2019-10-13 08:15 | NUR ---
PT THIS MORNING IS AFEBRILE. RUL HAS SIGNIFICANT CRACKLES PRESENT, ALL OTHER LOBES HAVE FINE CRACKLES PRESENT. ABDOMEN IS A BIT MORE DISTENDED THIS MORNING AND IT CAUSES SOB FOR PT WHILE SITTING UP IN BED. ABDOMEN IS ALSO TENDER TO TOUCH. PT STILL HAS GREEN/BROWN LOOSE AND MUCOUSE STOOLS PRESENT. URINE IN ROSAS IS BLOODY. OUTPUT HAS TAPPERED OFF SOME. TRACE BILATERAL LOWER LEG EDEMA IS PRESENT AND SO IT IS IN HIS HANDS. PT NOW SITTING ON BEDSIDE COMMODE. WILL LET MD GUILLERMO KNOW ABOUT BLOODY URINE.
--- NOTE | 2019-10-13 09:00 | NUR ---
RT HAD TO BE CALLED AFTER VAPOTHERM INTERMITTENLY STOPPED WORKING. PT O2 SATS DROPPED TO THE LOW 70'S. THE WHOLE SYSTEM HAD TO BE CHANGED OUT BY RT IN ORDER FOR IT TO WORK. PT NOW BACK IN BED ON HIS RIGHT SIDE IN [place]. VAPOTHERM FLOW UNCHANGED AT 35L 75% FIO2. PT WAS ON 40L 80%FIO2 AFTER VAPOTHERM SYSTEM HAD TO BE CHANGED. IT TOOK PT A WHILE TO RECOVER. PT IS EXHAUSTED AND TIRED. PT ONLY ATE 30% BREAKFAST.
--- NOTE | 2019-10-13 09:46 | NUR ---
MD GUILLERMO AWARE OF BLOODY URINE.
--- NOTE | 2019-10-13 11:00 | NUR ---
PT IS UP IN CHAIR ANG TOLERATING IT WELL OVERALL. RT SHOULD BE ON THE WAY TO [place] C-PAP.
--- NOTE | 2019-10-13 12:30 | NUR ---
C-PAP TRIAL FAILED. PT WAS ON IT FOR ABOUT 10MINUTES WITH RT IN THE ROOM. PT MOSTLY STAYED IN THE MID 80'S IN REGARDS TO O2 SATS. PT ONLY HIT 90% A COUPLE OF TIMES AND THIS WAS NOT SUSTAINED. PT BACK ON VAPOTHERM NOW AT 40L 80%FIO2. WILL CONTINUE TO MONITOR.
--- NOTE | 2019-10-13 13:19 | NUR ---
PT HAD NO URINE OUTPUT SINCE LASIX WAS GIVEN. ROSAS WAS FLUSHED WITH 20MLS OF NS AND URINE STARTED FLOWING. SMALL CLOTS X3 WERE NOTED. URINE AT THIS TIME IS ONLY SLIGHTLY BLOOD TINGED. WILL MEASURE OUTPUT SHORTLY.
--- NOTE | 2019-10-13 13:34 | NUR ---
PT UNDER PRECAUTIONS, SITTING IN CHAIR ASLEEP. WILL CHECK BACK
--- NOTE | 2019-10-13 14:45 | NUR ---
Update received from Rn for Xander. Pt had a difficult night. Will have a CXR today and possible wolfe.
--- NOTE | 2019-10-13 15:37 | NUR ---
PT OVERALL ONLY HAD OUT 510MLS FROM LASIX GIVEN THIS MORNING. URINE AT THIS TIME HAS VERY VERY MINIMAL BLOOD PRESENT. PT HOWEVER LOOKS MUCH BRIGHTER AND BETTER AT THIS TIME. PT DENIES PAIN AND N/V AND SOB. VAPOTHERM IS BACK TO 35L 75%FIO2. PT IS STILL IN CHAIR AND HE IS WATCHING TV.
--- NOTE | 2019-10-13 17:36 | NUR ---
PT IS STILL UP IN CHAIR WATCHING TV. PT IS IN VERY GOOD SPIRITS, DISPLAYING HUMOR. PT STILL AFEBRILE AT THIS TIME, ALL LOBES HAVE FINE CRACKLES PRESENT. HOWEVER, THERE ARE MUCH LESS CRACKLES PRESENT THAN THIS MORNING. VAPOTHERM SETTINGS UNCHANGED AT 35L 70%FIO2. ABDOMEN IS SOFTER TO TOUCH AND NON-TENDER. BILATERAL LOWER LEG EDEMA IS NOT PRESENT, SOME HAND EDEMA IS STILL PRESENT. URINE OUTPUT FROM SECOND DOSE OF 80MG LASIX SO FAR WAS ONLY 450MLS. URINE NOW IS YELLOW AND CLEAR. I DID FLUSH ROSAS AGAIN SINCE I THOUGHT IT MAY BE OSTRUCTED AGAIN AND A VERY SMALL CLOT CAME OUT. PT ALSO HAS HAD MUCH LESS BLOODY SPUTUM THIS AFTERNOON.
--- NOTE | 2019-10-13 18:08 | NUR ---
PT HAS BEEN ON 35L O2 AND 65%FIO2 SINCE ABOUT 1744 OR SO AND HAS BEEN TOLERATING IT WELL.
--- NOTE | 2019-10-13 19:15 | NUR ---
Report received, orders acknowledged. Patient sleeping in chair, respirations even and unlabored. SpO2 of 89% on vapotherm: 35L, 75% FiO2. HR in the 60's, RR of 20. Call light within reach.
--- NOTE | 2019-10-13 20:00 | NUR ---
Patient sitting up in chair watching tv. PM medications given. Vital signs taken, assessment complete. Mooney draining yellow urine. SpO2 of 88% on vapotherm, 35L, 75% FiO2. Patient returns to bed with 1PA. Patient lays in bed on right side in reverse trendelenburg. SpO2 increases to 94% on vapotherm with positioning. PRN pain medication given to patient prior to returning to bed. Warm blankets provided. Patient denies needs at this time, call light within reach.
--- NOTE | 2019-10-13 23:44 | NUR ---
PATIENT CALLED FOR ASSISTANCE. PATIENT SITTING UP TO EDGE OF THE BED. REPORTS FEELING NEED TO HAVE BM. ASSISTED PATIENT TO THE BSC. PATIENT APPEARS WEAK AND STATES "I'M JUST CONFUSED, BUMBER THAN A POST". ORIENTED PATIENT TO TIME AND EVENT. PATIENT APPEARS DROWSY. NO BM, PATIENT TRANSFERED BACK TO BED. LAYING ON LEFT SIDE. ROSAS FLUSHED, SMALL CLOTS NOTED. INCREASED URINE FLOW OUT. ORAL TEMP WNL. VS STABLE. O2 SAT 90% ON VAPOTHERM 35L 70% Fi02. PATIENT DENIES OTHER NEEDS. CALL LIGHT IN REACH.
--- NOTE | 2019-10-14 00:03 | NUR ---
PT DESATURATED TO 75%, IN TO CHECK ON PT. NASAL CANULLA CORRECTLY POSITIONED, INCREASED FIO2 FROM 70 TO 75%. SATS ONLY INCREASED TO 83-85%, SO VAPOTHERM INCREASED TO 40L @ 80%. SATS NOW 87-88%.
--- NOTE | 2019-10-14 00:30 | NUR ---
PATIENT DESATING AGAIN. RT CALLED. PATIENT TRAILED ON CPAP WITH 15L BLEED IN. PATIENT UNABLE TO MAINTAIN O2 SAT GREAT THAN 80%. PATIENT BACK TO VAPOTHERM AT 35L WITH 80% Fi02. IMPROVED O2 SAT TO 90%. PATIENT ON HIS HIGH RIGHT SIDE.
--- NOTE | 2019-10-14 02:00 | NUR ---
PATIENT APPEARS TO BE SLEEPING MORE SOUNDLY, RR 22 O2 SAT 88-90% ON 35L AND 80% Fi02.
--- NOTE | 2019-10-14 04:00 | NUR ---
PATIENT AWAKE. REPORTS FEELING BETTER THIS MORNING. MORE CLEAR MENTALLY AND BREATHING EASIER. PATIENT MAINTAINING O2 SAT 90% ON VAPOTHERM AT 80% Fi02. PATIENT DENIES ANY NEEDS THIS MORNING. VS STABLE. NO FEVER.
--- NOTE | 2019-10-14 06:10 | NUR ---
MORNING LABS DRAWN AND FRESH ICE WATER PROVIDED. X-RAY TECH IN TO ROOM FOR MORNING CHEST X-RAY. PT DENIES REQUESTS, CALL LIGHT WITHIN REACH.
--- NOTE | 2019-10-14 07:29 | NUR ---
PT WANTED TO GET UP TO BSC, ASSISTED HIM WITH SBA. PT SATS WERE MAINTAINING 78-80%, INCREASED VAPOTHERM SETTINGS TO 40L @85%.
--- NOTE | 2019-10-14 07:50 | NUR ---
Update recieved from RN. Pt cont. to decline, sob increased and 02 consuption increasing. is dicussing pt going to comfort care.
--- NOTE | 2019-10-14 08:22 | NUR ---
PT IS UNCOMFORTABLE, REPORTS "I DON'T KNOW WHAT'S WRONG, I THINK I NEED TO GET ON THE COMMODE". DISCUSSED USING THE BEDPAN INSTEAD, PT IS AGREABLE. PT ON BEDPAN, FOR APPROXIMATLY 10 MINUTES, STATES "I GUESS I DON'T HAVE TO GO". PT BOOSTED UP IN BED. PO PILLS GIVEN WITH SIPS OF ENSURE. PT APPEARS TO BE 4/10 GENERALIZED DISCOMFORT, 1,000 MG PO TYLENOL GIVEN. PT O2 SATS ARE DECREASING TO MID 80'S DISPITE 40L WITH 80% FIO2 VIA VAPOTHERM. ADJUSTED VAPOTHERM NC FOR COMFORT.
--- NOTE | 2019-10-14 08:50 | NUR ---
CALLED FOR TO COME AND EVALUATE THE PT, VERBAL ORDER GIVEN TO INCREASE FIO2 TO 100%. TO REVIEW PT CHART AND COME IN TO EVALUATE PT SHORTLY. PT ABLE TO DRINK ONE ENSURE.
--- NOTE | 2019-10-14 11:11 | NUR ---
CALLED MR.SCOT BOSS TO UPDATE HIM THAT NO VISITATION WILL BE ALLOWED FOR THIS END OF LIFE, DUE TO THE COVID POSITIVE PT AND 'S EXPOSURE ONLY 8 DAYS AGO. MR. FARRAH BOSS IS UNDERSTANDING OF THIS. WILL CONTINUE TO UPDATE FAMILY OF PT'S PROGRESS. PT'S SPOUSE MRS. JYOTHI BOSS IS NOW IN THE ROOM WITH HER , SHE IS HOSPITALIZED FOR COVID POSITIVE AT THIS TIME WELL SHE IS ALLOWED INTO THE ROOM. PT TRANSPORTED IN CUMMINGS WITH APPROPRIATE PPE.
--- NOTE | 2019-10-14 11:55 | NUR ---
PT'S MRS.RADENE BOSS MOVED BACK TO HER ROOM AT BOTH HER AND HER 'S REQUEST. THEY WERE GIVEN TIME TO TALK FOR ABOUT 1 HOUR, ABLE TO SAY GOODBYES. BOTH REMAIN CALM AND COMFORTING TO ONE ANOTHER.
--- NOTE | 2019-10-14 12:44 | NUR ---
IN AT THE BEDSIDE TO DISUCSS TRANSITION TO COMFORT CARE, PT VERBALIZES UNDERSTANDING, ALL PT QUESTONS ANSWERED. PT IS CALM AND COOPERATIVE.
--- NOTE | 2019-10-14 12:59 | NUR ---
VAPOTHERM SET TO 35 L FLOW AT 100% FIO2. PT LAYING IN BED WITH HIS EYES CLOSED, RESP EVEN AND UNLABORED.
--- NOTE | 2019-10-14 13:06 | NUR ---
VAPOTHERM TITRATED DOWN TO 30L FLOW WITH 80% FIO2, PT DENIES DISCOMFORT AT THIS TIME.
--- NOTE | 2019-10-14 13:14 | NUR ---
VAPOTHERM SETTINGS TITRATED DOWN TO 25L O2 FLOW AND FIO2 50%.
--- NOTE | 2019-10-14 13:25 | NUR ---
VAPOTHERM TITRATED DOWN TO 20L FLOW WITH FIO2 OF 40%. PT RESTING QUIETLY IN BED. PT GIVEN 4 MG IV MORPHINE AT 1320 FOR COMFORT/SOB.
--- NOTE | 2019-10-14 13:33 | NUR ---
VAPOTHERM TITRATED DOWN TO 15 L FLOW AT 35% FIO2. PT RESTING WITH EYES CLOSED, REQUESTS A SIP OF WATER FOR "SORE THROAT". PT ABLE TO SWALLOW EASILY
--- NOTE | 2019-10-14 13:40 | NUR ---
VAPOTHERM TITRATED DOWN TO 10 L O2 WITH 30% FIO2.
--- NOTE | 2019-10-14 13:48 | NUR ---
VAPOTHERM TURNED DOWN TO 5L O2 AT 25% FIO2.
--- NOTE | 2019-10-14 13:56 | NUR ---
pt off vapother at this time, on 4L O2 via NC.
--- NOTE | 2019-10-14 14:09 | NUR ---
PT TOOK O2 OFF OF HIMSELF, WILL NOT KEEP IT IN PLACE, LIKES TO SCRATCH/RUB NOSE UNTIL NC FALLS OUT.
--- NOTE | 2019-10-14 16:05 | NUR ---
PT GIVEN TWO DOSES OF 4 MG IV MORPHINE 15 MINUTES APART FOR APPEARANCE OF PAIN/STRUGGLING TO BREATH. PT SIGNS/SYMPTOMS OF BREATHING DIFFICULTY HAVE RESOLVED.
--- NOTE | 2019-10-14 17:07 | NUR ---
PT HAS APPEARANCE OF PAIN/STRUGGLING TO BREATH. AGIONAL BREATH PATTERN NOTED.
--- NOTE | 2019-10-14 17:29 | NUR ---
pt has progressed to agional breathing, at approximatly 1715 pt appeared to be painful/strugging to breath. administered 4 mg iv morphine, this did not appear to relieve painful appearance, additional 4 mg iv morphine given for comfort. pt has responded well. called to update, new orders given for morphine drip via phone.
--- NOTE | 2019-10-14 17:38 | NUR ---
PT BREATHING HAS STOPPED, CALLED MD TO VERIFY, POSSIBLE , NO FEMORAL PULSES FELT, NO HEARTBEAT OSCULTATED.
--- NOTE | 2019-10-14 18:07 | NUR ---
IN ROOM TO CONFIRM AT 1745. ALL IV SITES, ROSAS CATH, MONITOR CABLES REMOVED FROM THE BODY. BOTH UPPER AND LOWER DENTURE REMOVED FROM PT MOUTH. PT COVERED COMPLETLY WITH CLEAN DRAW SHEET PER AIDS COUNSELOR. BODY BAGS TO BE BROUGHT FROM DISASTER ROOM. XIMENA CHAVES HAS INFORMED PT'S OF HIS PASSING, PER 'S CONSENT. IS CALLING WhitneyFARRAH BOSS TO INFORM OF PT DEMISE.
--- NOTE | 2019-10-14 18:33 | NUR ---
Advertising Designer Michelle called to inform me pt had passed. Staff had already bagged body at time of arrival. [id number] called [facility]. Sofia indicated transport would be sent as soon as possible.
--- NOTE | 2019-10-14 19:20 | NUR ---
pt body has left the floor in care of the josé antonioazalea Busby. pt in three body bags and then placed on the gurney prior to removal from room.
== END 2019-10-14 19:15 | DRG 177 ==
LOC: ED 11:39 → CCU 14:12
PROVIDERS: ADMIT Internal Medicine
PROC: 5A09357 Assistance with Respiratory Ventilation, Less than 24 Consecutive Hours, Continuous Positive Airway Pressure (ICD-10-PCS; principal; 2019-10-03)
DX: U07.1 COVID-19 (principal); J12.89 Other viral pneumonia; J96.01 Acute respiratory failure with hypoxia; G93.41 Metabolic encephalopathy; I50.33 Acute on chronic diastolic (congestive) heart failure; N17.9 Acute kidney failure, unspecified; I25.810 Atherosclerosis of coronary artery bypass graft(s) without angina pectoris; I47.1 Supraventricular tachycardia; K52.9 Noninfective gastroenteritis and colitis, unspecified; Z51.5 Encounter for palliative care; E11.22 Type 2 diabetes mellitus with diabetic chronic kidney disease; N18.3 Chronic kidney disease, stage 3 (moderate); E11.51 Type 2 diabetes mellitus with diabetic peripheral angiopathy without gangrene; G31.84 Mild cognitive impairment of uncertain or unknown etiology; E78.5 Hyperlipidemia, unspecified; N40.0 Benign prostatic hyperplasia without lower urinary tract symptoms; D69.6 Thrombocytopenia, unspecified; F41.9 Anxiety disorder, unspecified; D64.9 Anemia, unspecified; Z79.899 Other long term (current) drug therapy; Z79.82 Long term (current) use of aspirin; Z66 Do not resuscitate; Z95.0 Presence of cardiac pacemaker; Z95.820 Peripheral vascular angioplasty status with implants and grafts; Z95.1 Presence of aortocoronary bypass graft
CPT/HCPCS: 36415; 51702; 71045; 74176; 80048; 80053; 80069; 80076; 81001; 82570; 82728; 83036; 83605; 83735; 83880; 84100; 84300; 84484; 84540; 85025; 85379; 85384; 85610; 85651; 85730; 86140; 87040; 87045; 87046; 87070; 87205; 87493; 93005; 93010; 93306; 94640; 94660; 94668; 94799; 97116; 97163; 99285-25; J0696; J1650; J1815; J1940; J2060; J2270; J2405; J3475; J7040; J7050; J7121; U0002